=== PATIENT | female | born 1985 | race Caucasian/White ===

== ENCOUNTER 2021-11-01 16:10 | Emergency (ER) | payer OTHER, SELFPAY ==
--- NOTE | 2021-11-01 | ECG_ITS ---
Test Reason : chest pressure Blood Pressure : / mmHG Vent. Rate : 072 BPM Atrial Rate : 072 BPM P-R Int : 122 ms QRS Dur : 090 ms QT Int : 386 ms P-R-T Axes : 031 024 031 degrees QTc Int : 422 ms Normal sinus rhythm with sinus arrhythmia Normal ECG No previous ECGs available Referred By: Generic ED Physician Electronically Signed By:HEATHER NGUYEN MD
--- NOTE | ~2021-11-01 | XR_ITS ---
EXAMINATION: XR CHEST CLINICAL INFORMATION: Shortness of breath COMPARISON: None TECHNIQUE: Frontal view of the chest was obtained. FINDINGS: No significant abnormality is noted involving the heart, lungs, mediastinum, bony thorax or soft tissues. XR/XR chest 1V IMPRESSION: No acute pulmonary disease.
[2021-11-01 17:09] VITALS: BP 157/102; PULSE 89; RESP 18; TEMP 36.8; O2SAT 98; BMI 34.0
[2021-11-01 19:16] LABS: COVID-19 Test Positive (Negative)
--- NOTE | 2021-11-01 20:12 | ED.URI ---
HPI - URI/Sore Throat General Chief Complaint: Upper Respiratory Symptoms Stated Complaint: cough chest tightness sob had covid 10/07/21 Time Seen by Provider: 11/01/21 19:35 Source: patient Mode of arrival: ambulatory Limitations: no limitations History of Present Illness HPI Narrative: 36-year-old female with a history of autoimmune disorder, asthma here with chest tightness, shortness of breath, cough for the last 3 days at home. No fevers, chills, leg swelling or pain. Patient tells me she was diagnosed with COVID on October 07 and seemed to recover from this until several days ago when she started to feel symptoms again. Patient had some leftover prednisone which she took which seemed to help her shortness of breath and chest tightness. She ran out of her albuterol inhaler at home. Related Data Previous Rx's Medication Instructions Recorded albuterol sulfate 90 mcg/actuation 2 puff INHALATION QID PRN #8.5 g 11/01/21 aerosol inhaler prednisone 20 mg tablet 40 mg PO DAILY #10 tab 11/01/21 Allergies Allergy/AdvReac Type Severity Reaction Status Date / Time Penicillins Allergy Anaphylaxis Verified 11/01/21 17:08 Review of Systems Review of Systems: Yes all other systems are reviewed and are negative Constitutional: Constitutional: Reports no additional constitutional complaints, Denies body ache(s), Denies chills, Denies fever(s), Denies headache(s) and Denies weakness Eyes: Eyes: Reports no additional eye complaints and Denies change in vision ENT: Reports system reviewed and no additional complaints, except as documented, Denies dizziness, Denies headache(s), Denies nasal congestion, Denies nasal discharge and Denies neck pain Cardiovascular: Cardiovascular: Reports no additional cardiovascular complaints, Reports chest pain, Denies leg edema and Reports dyspnea Respiratory: Respiratory: Reports no additional respiratory complaints, Reports cough and Reports dyspnea Gastrointestinal: Gastrointestinal: Reports no additional gastrointestinal complaints, Denies abdominal pain, Denies diarrhea, Denies nausea and Denies vomiting Genitourinary: Genitourinary: Reports no additional female genitourinary complaints and Denies urinary incontinence Musculoskeletal: Musculoskeletal: Reports no additional musculoskeletal complaints, Denies back pain, Denies arthralgias, Denies joint swelling, Denies neck pain, Denies numbness and Denies tingling Integumentary/Breasts: Skin/Breast: Reports system reviewed and no additional complaints, except as docu and Denies rash Neurologic: Denies Abnormal speech present, Denies dizziness, Denies headache(s), Denies numbness, Denies tingling and Denies weakness PMFSH Past Medical History Attestation statement: The following information was validated with the patient. Source: old records reviewed and nursing notes reviewed Medical History Asthma CHF (congestive heart failure) Maurisio's disease HTN (hypertension) Social History Social History Advance Directives: No Advance Directives Information Provided: Yes Patient : No Physical Exam Vital Signs: Vital Signs: Last Vital Signs Temp 98.2 F 11/01/21 17:09 Pulse 89 11/01/21 17:09 Resp 18 11/01/21 17:09 BP 157/102 H 11/01/21 17:09 Pulse Ox 98 11/01/21 17:09 BMI result Body Mass Index 34.0 Const: General: cooperative, healthy appearing, comfortable and no acute distress Orientation/consciousness: patient oriented x3 Limitations: no limitations HENMT: Head: Yes normal to inspection Ears: hearing grossly normal bilaterally and TM's normal bilaterally General nose exam: Normal external nose present Face and sinus: Yes normal facial exam Mouth: Normal oral and palatal mucosa present Throat: Yes posterior oropharynx normal, Yes tonsils normal and Yes uvula midline Eyes: General: appearance normal, both eyes and all related structures Pupils: Equal, round and reactive pupils present Neck: Neck: Yes normal visual inspection Chest: Other: Chest discomfort with deep breathing and movement Chest palpation & inspection: normal inspection of the chest Resp: Effort & Inspection: normal respiratory effort Auscultation: clear to auscultation bilaterally Cardio: Rate: regular rate Rhythm: regular rhythm Peripheral pulses: Peripheral pulses 2+ throughout GI: Inspection: Yes normal to inspection Palpation (GI): Soft to palpation and nontender Auscultation: normal bowel sounds Back/Spine/Pelvis: Thoracic/Lumbar Spine: thoracic and lumbar spine normal to inspection Skin: General skin exam: no rashes or lesions noted Neuro: General: patient oriented x3, no focal motor deficits and normal sensation to monofilament Cranial nerves: Yes Equal, round and reactive pupils present Cognition (Neuro): normal cognition Speech: No Abnormal speech present Gait exam (Neuro): Normal gait present Motor exam (neuro): 5/5 motor strength present throughout Extrem: General: Yes normal to inspection, Yes no pedal edema and Yes no calf tenderness Course Course Course Narrative: 36-year-old female here with reports of chest tightness, shortness of breath and cough for several days. On exam the patient has pleuritic chest pain. No calf swelling or pain. Lungs are clear. Vitals are stable. Patient tested positive on 10/07 for COVID and tells me she had several weeks of feeling better until couple of days ago. Will check chest x-ray, EKG, labs. 2144-chest x-ray, EKG and labs are all unremarkable. COVID screen is positive however I did explain to the patient she will likely test positive for several weeks after she recovered from that illness. Likely chest wall strain secondary to coughing. Patient also has underlying asthma and feels like she has been using her inhaler more but ran out of this at home. Will treat with course of prednisone and albuterol MDI. Reviewed worrisome signs and symptoms of when to return to the emergency department. Comfortable discharge home. MDM - URI/Sore Throat MDM Narrative Medical decision making narrative: Myocarditis, ACS, PE -less likely with normal EKG, normal troponin, negative D-dimer. No hypoxia, tachypnea, tachycardia clinical findings concerning for DVT Medical Records Attestation: I reviewed the patient's medical records. Lab Data Attestation: I reviewed the patient's lab results. Result diagrams: 11/01/21 20:19 11/01/21 20:19 Labs: Lab Results 11/01/21 11/01/21 11/01/21 Range/Units 18:16 20:19 20:19 WBC 7.4 (4.8-10.8) X10*3/uL RBC 4.46 (4.20-5.50) X10*6/uL Hgb 12.9 (12.0-16.0) g/dl Hct 38.1 (37.0-47.0) % MCV 85.4 (80.0-98.0) fL MCH 28.9 (27.0-33.0) pg MCHC 33.9 (31.0-35.0) g/dl RDW 13.0 (11.0-16.0) % Plt Count 225 (160-400) X10*3/uL MPV 11.8 (9.4-12.3) fL Immature Gran % (Auto) 0.3 (0.0-0.4) % Neut % (Auto) 67.9 (45-73) % Lymph % (Auto) 18.5 L (20-40) % [place] % (Auto) 9.3 (2-11) % Eos % (Auto) 3.6 (0-4) % Baso % (Auto) 0.4 (0-2) % Lymph # (Auto) 1.4 (1.2-4.9) X10*3/uL [place] # (Auto) 0.7 (0.1-1.2) X10*3/uL Eos # (Auto) 0.3 (0.0-0.4) X10*3/uL Baso # (Auto) 0.0 (0.0-0.2) X10*3/uL Abs Immat Gran (auto) 0.02 (0.00-0.03) X10*3/uL Absolute Neuts (auto) 5.0 (2.0-8.3) x10*3/uL Absolute Nucleated RBC 0.000 (0.0-0.012) X10*3/uL Nucleated RBC % (auto) 0.0 (0.0-0.2) /100WBC D-Dimer High Sensitivty < 150 NG/ML Sodium (135-145) mmol/L Potassium (3.3-5.1) mmol/L Chloride (96-108) mmol/L Carbon Dioxide (22-29) mmol/L Anion Gap (12-20) BUN (9-16) mg/dL Creatinine (0.5-1.4) mg/dL Estim Creat Clear Calc Estimated GFR Random Glucose (60-115) mg/dL Calcium (8.4-10.2) mg/dL Total Bilirubin (0.0-1.0) mg/dL Direct Bilirubin (0.0-0.5) mg/dL AST (5-31) U/L ALT (0-31) U/L Alkaline Phosphatase (39-117) U/L Troponin I High Sens (<3.5-17.0) ng/L Total Protein (6.5-8.0) g/dL Albumin (3.5-5.0) g/dL Urine Color Urine Appearance Urine pH (5.0-8.0) Ur Specific [place] (1.005-1.025) Urine Protein (NEG-TRACE) MG/DL Urine Glucose (UA) (NEG) MG/DL Urine Ketones (NEG) MG/DL Urine Blood (NEG) Urine Nitrite (NEG) Ur Leukocyte Esterase (NEG) Urine Test (NEGATIVE) COVID-19 (NICOLE) Positive A (Negative) COVID-19 Clin Com See Note 11/01/21 11/01/21 11/01/21 Range/Units 20:19 20:19 20:19 WBC (4.8-10.8) X10*3/uL RBC (4.20-5.50) X10*6/uL Hgb (12.0-16.0) g/dl Hct (37.0-47.0) % MCV (80.0-98.0) fL MCH (27.0-33.0) pg MCHC (31.0-35.0) g/dl RDW (11.0-16.0) % Plt Count (160-400) X10*3/uL MPV (9.4-12.3) fL Immature Gran % (Auto) (0.0-0.4) % Neut % (Auto) (45-73) % Lymph % (Auto) (20-40) % [place] % (Auto) (2-11) % Eos % (Auto) (0-4) % Baso % (Auto) (0-2) % Lymph # (Auto) (1.2-4.9) X10*3/uL [place] # (Auto) (0.1-1.2) X10*3/uL Eos # (Auto) (0.0-0.4) X10*3/uL Baso # (Auto) (0.0-0.2) X10*3/uL Abs Immat Gran (auto) (0.00-0.03) X10*3/uL Absolute Neuts (auto) (2.0-8.3) x10*3/uL Absolute Nucleated RBC (0.0-0.012) X10*3/uL Nucleated RBC % (auto) (0.0-0.2) /100WBC D-Dimer High Sensitivty NG/ML Sodium 139 (135-145) mmol/L Potassium 3.8 (3.3-5.1) mmol/L Chloride 106 (96-108) mmol/L Carbon Dioxide 28 (22-29) mmol/L Anion Gap 9 L (12-20) BUN 16 (9-16) mg/dL Creatinine 0.77 (0.5-1.4) mg/dL Estim Creat Clear Calc 107.4 Estimated GFR > 60 Random Glucose 90 (60-115) mg/dL Calcium 9.4 (8.4-10.2) mg/dL Total Bilirubin 0.3 (0.0-1.0) mg/dL Direct Bilirubin < 0.2 (0.0-0.5) mg/dL AST 17 (5-31) U/L ALT 27 (0-31) U/L Alkaline Phosphatase 72 (39-117) U/L Troponin I High Sens < 3.5 (<3.5-17.0) ng/L Total Protein 7.0 (6.5-8.0) g/dL Albumin 4.1 (3.5-5.0) g/dL Urine Color YELLOW Urine Appearance CLEAR Urine pH 6.0 (5.0-8.0) Ur Specific [place] 1.025 (1.005-1.025) Urine Protein NEG (NEG-TRACE) MG/DL Urine Glucose (UA) NEG (NEG) MG/DL Urine Ketones NEG (NEG) MG/DL Urine Blood NEG (NEG) Urine Nitrite NEG (NEG) Ur Leukocyte Esterase NEG (NEG) Urine Test (NEGATIVE) COVID-19 (NICOLE) (Negative) COVID-19 Clin Com 11/01/21 Range/Units 20:19 WBC (4.8-10.8) X10*3/uL RBC (4.20-5.50) X10*6/uL Hgb (12.0-16.0) g/dl Hct (37.0-47.0) % MCV (80.0-98.0) fL MCH (27.0-33.0) pg MCHC (31.0-35.0) g/dl RDW (11.0-16.0) % Plt Count (160-400) X10*3/uL MPV (9.4-12.3) fL Immature Gran % (Auto) (0.0-0.4) % Neut % (Auto) (45-73) % Lymph % (Auto) (20-40) % [place] % (Auto) (2-11) % Eos % (Auto) (0-4) % Baso % (Auto) (0-2) % Lymph # (Auto) (1.2-4.9) X10*3/uL [place] # (Auto) (0.1-1.2) X10*3/uL Eos # (Auto) (0.0-0.4) X10*3/uL Baso # (Auto) (0.0-0.2) X10*3/uL Abs Immat Gran (auto) (0.00-0.03) X10*3/uL Absolute Neuts (auto) (2.0-8.3) x10*3/uL Absolute Nucleated RBC (0.0-0.012) X10*3/uL Nucleated RBC % (auto) (0.0-0.2) /100WBC D-Dimer High Sensitivty NG/ML Sodium (135-145) mmol/L Potassium (3.3-5.1) mmol/L Chloride (96-108) mmol/L Carbon Dioxide (22-29) mmol/L Anion Gap (12-20) BUN (9-16) mg/dL Creatinine (0.5-1.4) mg/dL Estim Creat Clear Calc Estimated GFR Random Glucose (60-115) mg/dL Calcium (8.4-10.2) mg/dL Total Bilirubin (0.0-1.0) mg/dL Direct Bilirubin (0.0-0.5) mg/dL AST (5-31) U/L ALT (0-31) U/L Alkaline Phosphatase (39-117) U/L Troponin I High Sens (<3.5-17.0) ng/L Total Protein (6.5-8.0) g/dL Albumin (3.5-5.0) g/dL Urine Color Urine Appearance Urine pH (5.0-8.0) Ur Specific [place] (1.005-1.025) Urine Protein (NEG-TRACE) MG/DL Urine Glucose (UA) (NEG) MG/DL Urine Ketones (NEG) MG/DL Urine Blood (NEG) Urine Nitrite (NEG) Ur Leukocyte Esterase (NEG) Urine Test NEGATIVE (NEGATIVE) COVID-19 (NICOLE) (Negative) COVID-19 Clin Com Imaging Data Chest x-ray: Attestation: I personally reviewed and interpreted this imaging study as follows: Radiologist's impression: [address] [address] XRay Report Signed Patient: Sheela Max MR#: [id number] : 1985 Acct:[id number] Age/Sex: 36 / F ADM Date: 11/01/21 Loc: .ED Attending Dr: Ordering Physician: [place] ED Physician Date of Service: 11/01/21 Procedure(s): XR chest 1V Accession Number(s): [id number] cc: Generic ED Physician~ EXAMINATION: XR CHEST CLINICAL INFORMATION: Shortness of breath COMPARISON: None TECHNIQUE: Frontal view of the chest was obtained. FINDINGS: No significant abnormality is noted involving the heart, lungs, mediastinum, bony thorax or soft tissues. XR/XR chest 1V IMPRESSION: No acute pulmonary disease. ? ECG Data Attestation: I personally reviewed and interpreted this ECG as follows: ECG interpretation date: 11/01/21 ECG interpretation time: 18:21 Interpretation: Normal sinus rhythm with a rate of 72, normal MO, QRS normal QT Discharge Plan Discharge Clinical Impression: Atypical chest pain, Asthma Patient Disposition: Home, Self-Care Instructions: Asthma (ED), Chest Wall Pain (ED) Additional Instructions: X-ray, EKG and labs all look normal You are testing positive for COVID still but you may test positive for several more weeks. You do not need to quarantine Prescriptions: New prednisone 20 mg tablet 40 mg PO DAILY Qty: 10 RF: 0 albuterol sulfate 90 mcg/actuation HFA aerosol inhaler 2 puff inhalation QID PRN (Reason: shortness of breath or wheezing) Qty: 8.5 RF: 0 Referrals: Physician,None [Primary Care Provider] - 2 days Interventions: ED Discharge Assessment Last Done: 11/01/21 21:17 Discharge Date/Time: 11/01/21 21:17
[2021-11-01 20:24] LABS: MANUAL DIFF FLAG NO
[2021-11-01 20:28] LABS: Basophils Percent Auto 0.4 % (0-2); Eosinophils Absolute Auto 0.3 X10*3/uL (0.0-0.4); Eosinophils Percent Auto 3.6 % (0-4); Hematocrit 38.1 % (37.0-47.0); Hemoglobin 12.9 g/dl (12.0-16.0); Imm Gran Abs Auto 0.02 X10*3/uL (0.00-0.03); Imm Gran Pct Auto 0.3 % (0.0-0.4); Lymphocytes Absolute Auto 1.4 X10*3/uL (1.2-4.9); Lymphocytes Percent Auto 18.5 % (20-40); Mean Corpuscular HGB Conc 33.9 g/dl (31.0-35.0); Mean Corpuscular Hemoglobin 28.9 pg (27.0-33.0); Mean Corpuscular Volume 85.4 fL (80.0-98.0); Mean Platelet Volume 11.8 fL (9.4-12.3); Monocytes Absolute Auto 0.7 X10*3/uL (0.1-1.2); Monocytes Percent Auto 9.3 % (2-11); Neutrophils Percent Auto 67.9 % (45-73); Platelet Count 225 X10*3/uL (160-400); Red Blood Count 4.46 X10*6/uL (4.20-5.50); White Blood Count 7.4 X10*3/uL (4.8-10.8)
[2021-11-01 20:29] LABS: Appearance Urine CLEAR; Color Urine YELLOW; Glucose Urine UA NEG (NEG); Leukocyte Esterase Urine NEG (NEG); Nitrite Urine NEG (NEG); Specific Gravity - Urine 1.025 (1.005-1.025); Urine Blood NEG (NEG); Urine Ketones NEG (NEG); Urine Protein NEG (NEG-TRACE)
[2021-11-01 20:31] LABS: UPreg QC Valid YES; Urine Pregnancy NEGATIVE (NEGATIVE)
[2021-11-01 20:48] LABS: Troponin-I High Sensitivity < 3.5 ng/L (<3.5-17.0)
[2021-11-01 20:58] LABS: D Dimer High Sensitivity < 150 NG/ML
[2021-11-01 21:11] LABS: Alanine Aminotransferase 27 U/L (0-31); Albumin Level 4.1 g/dL (3.5-5.0); Alkaline Phosphatase 72 U/L (39-117); Anion Gap 9 (12-20); Aspartate Amino Transferase 17 U/L (5-31); Bilirubin Direct < 0.2 mg/dL (0.0-0.5); Bilirubin Total 0.3 mg/dL (0.0-1.0); Blood Urea Nitrogen 16 mg/dL (9-16); Calcium 9.4 mg/dL (8.4-10.2); Carbon Dioxide 28 mmol/L (22-29); Chloride 106 mmol/L (96-108); Creatinine Clr Calc Pharmacy 107.4; Estimated Glomerular Filt Rate > 60; Glucose Random 90 mg/dL (60-115); Potassium 3.8 mmol/L (3.3-5.1); Sodium 139 mmol/L (135-145)
== END 2021-11-01 21:17 | disposition home or self-care (01) ==
PROVIDERS: Nurse Practitioner Family; Emergency Provider Internal Medicine
DX: R07.89 Other chest pain (principal); J45.909 Unspecified asthma, uncomplicated; I11.0 Hypertensive heart disease with heart failure; I50.9 Heart failure, unspecified; Z20.822 Contact with and (suspected) exposure to COVID-19
CPT/HCPCS: 36415; 71045; 80048; 80076; 81003; 81025; 84484; 85025; 85379; 87635; 93005; 99283

== ENCOUNTER 2023-04-08 13:07 | Emergency (ER) | payer OTHER, SELFPAY ==
[2023-04-08 13:46] VITALS: BP 154/88; PULSE 67; RESP 16; TEMP 36.4; O2SAT 100; BMI 35.1
--- NOTE | 2023-04-08 13:47 | ED.GENADULT ---
HPI - General Adult General Chief complaint: Abdominal Pain Stated complaint: abd pain, back pain Time Seen by Provider: 04/08/23 16:11 Source: patient Mode of arrival: ambulatory History of Present Illness HPI narrative: 37-year-old female with history of gastric sleeve in December, states that she had this done at [facility], no complications, everything has been going along fine but states that she has had increasing acid reflux with mid back pain/diarrhea/heartburn for 2 weeks. She has increased her Pepcid, Pepto-Bismol as well as Gaviscon. Patient reports that she has been getting some improvement with the Gaviscon. Otherwise, denies any fever, chills, nausea, vomiting. She has been using NSAIDs for the past couple of days as well as drinking coffee. Related Data Previous Rx's Medication Instructions Recorded albuterol sulfate 90 mcg/actuation 2 puff inhalation QID PRN 11/01/21 aerosol inhaler shortness of breath or wheezing #8.5 grams prednisone 20 mg tablet 40 mg PO DAILY #10 tabs 11/01/21 sucralfate 100 mg/mL oral 10 ml PO TID #420 mL 04/08/23 suspension (Carafate) Allergies Allergy/AdvReac Type Severity Reaction Status Date / Time Penicillins Allergy Anaphylaxis Verified 04/08/23 13:46 Review of Systems Review of Systems: Pertinent positives and negatives as stated in [facility] Past Medical History Source: nursing notes reviewed Medical History Asthma CHF (congestive heart failure) Maurisio's disease HTN (hypertension) Social History Social History Alcohol intake: current Alcohol intake frequency: holidays/special occasions only Smoked in Last 30 Days: No Substance Use Type: Marijuana Substance Use Type Other:: only an occasional edible for sleep Substance Use Frequency: Occasionally Last Used Substance: Days (ago) Advance Directives: No Advance Directives Information Provided: No Physical Exam ED Vital Signs: Vital Signs - 24 hr 04/08/23 13:46 04/08/23 15:59 04/08/23 17:56 Temperature 97.6 F 98.1 F Pulse Rate 67 103 H 50 Respiratory Rate 16 18 16 Blood Pressure 154/88 H 125/85 122/80 Pulse Oximetry 100 99 98 Oxygen Delivery Method Room Air Room Air Room Air BMI result Body Mass Index 35.1 VITAL SIGNS: Reviewed. GENERAL: Well developed, well nourished, in no acute distress. HEAD: Normocephalic/atraumatic EYES: PERRLA, EOMI EARS: Ext canals without abnormality NOSE: Nares patent bilateral OROPHARYNX: no oral lesions noted, posterior pharynx clear NECK: Supple, no adenopathy LUNGS: Normal breath sounds. No adventitious sounds or accessory muscle use. SpO2<98> CARDIOVASCULAR: Regular rate and rhythm without noted murmurs ABDOMEN: Soft, mild tenderness on palpation, non-distended with bowel sounds. MUSCULOSKELETAL: No tenderness, deformities, or effusions noted on gross inspection. EXTREMITIES: No cyanosis, clubbing or edema. SKIN: Inspection of the skin reveals no rashes NEUROLOGIC: Alert and oriented x 4. Strength and sensation to light touch were grossly intact x 4. Course Course Course Narrative: This is an RME: Additional HPI, ROS, PE not included below will be deferred to primary provider. This is a [id number]-female, with a history of gastric sleeve in December 2022, hashimotos and hyperparathyroidism, presenting to the emergency department with complaints of heartburn, diarrhea, flatulance and fatigue x 3 months. She states that since her surgery, she has had persistent heartburn, diarrhea, gas and fatigue despite taking [place] and omeprazole. She called her bariatric surgeon who will not see her until the end of the March. No fevers or chills. Will defer further exam until seen in the main ER. Plan: Labs ordered. Medications Administered Discontinued Medications Generic Name Dose Route Start Last Admin Trade Name Gerardq PRN Reason Stop Dose Admin Al Hydroxide/Mg Hydroxide 30 ml 04/08/23 17:38 04/08/23 18:06 Magnesium Hydrox/Alum Hydrox 30 Ml Oral.Susp PO 04/08/23 17:39 30 ml ONCE ONE Administration Lidocaine HCl 10 ml 04/08/23 17:38 04/08/23 18:06 Lidocaine Hcl Viscous 2 % 15 Ml Solution MUCOUS MEM 04/08/23 17:39 10 ml ONCE ONE Administration Sucralfate 1 gm 04/08/23 17:38 04/08/23 18:06 Sucralfate Oral Suspension 1 Gm/10 Ml Oral.Susp PO 04/08/23 17:39 1 gm ONCE ONE Administration Medical Decision Making Medical Decision Making MDM Narrative: 37-year-old female with history and clinical presentation most consistent with acid reflux likely associated by dietary choices, [id number] medication and recent type surgery. I have no clinical suspicion for acute perforation or life-threatening abnormality at this time after review of all investigations. She is otherwise hemodynamically stable and was given GI cocktail and Carafate and will re-evaluate. Of note, hCG-12, urine is negative and will discuss this with the patient and strongly encourage follow-up for repeat labs. Review of all investigations my interpretation is acid reflux with acute gastritis and possibility of developing ulcer. On re-evaluation patient is feeling much improved after the medication. Differential Diagnosis Please see the discussion above Lab Data Please see the discussion above 04/08/23 14:11 04/08/23 14:11 Labs: Lab Results 04/08/23 04/08/23 04/08/23 Range/Units 14:11 14:11 14:11 WBC 6.1 (4.8-10.8) X10*3/uL RBC 4.71 (4.20-5.50) X10*6/uL Hgb 13.2 (12.0-16.0) g/dl Hct 40.9 (37.0-47.0) % MCV 86.8 (80.0-98.0) fL MCH 28.0 (27.0-33.0) pg MCHC 32.3 (31.0-35.0) g/dl RDW 12.7 (11.0-16.0) % Plt Count 211 (160-400) X10*3/uL MPV 11.7 (9.4-12.3) fL Immature Gran % (Auto) 0.3 (0.0-0.4) % Neut % (Auto) 67.0 (45-73) % Lymph % (Auto) 23.4 (20-40) % [place] % (Auto) 6.3 (2-11) % Eos % (Auto) 2.5 (0-4) % Baso % (Auto) 0.5 (0-2) % Lymph # (Auto) 1.4 (1.2-4.9) X10*3/uL [place] # (Auto) 0.4 (0.1-1.2) X10*3/uL Eos # (Auto) 0.2 (0.0-0.4) X10*3/uL Baso # (Auto) 0.0 (0.0-0.2) X10*3/uL Abs Immat Gran (auto) 0.02 (0.00-0.03) X10*3/uL Absolute Neuts (auto) 4.1 (2.0-8.3) x10*3/uL Absolute Nucleated RBC 0.000 (0.0-0.012) X10*3/uL Nucleated RBC % (auto) 0.0 (0.0-0.2) /100WBC Sodium 139 (135-145) mmol/L Potassium 4.1 (3.3-5.1) mmol/L Chloride 106 (96-108) mmol/L Carbon Dioxide 27 (22-29) mmol/L Anion Gap 10 L (12-20) BUN 11 (9-16) mg/dL Creatinine 0.76 (0.5-1.4) mg/dL Estim Creat Clear Calc 101.7 Estimated GFR > 60 Random Glucose 100 (60-115) mg/dL Calcium 9.4 (8.4-10.2) mg/dL Total Bilirubin 0.5 (0.0-1.0) mg/dL Direct Bilirubin 0.1 (0.0-0.5) mg/dL AST 15 (5-31) U/L ALT 14 (0-31) U/L Alkaline Phosphatase 56 (39-117) U/L Total Protein 6.3 L (6.5-8.0) g/dL Albumin 3.9 (3.5-5.0) g/dL Lipase 21 (8-78) U/L TSH 1.94 (0.32-4.0) uIU/mL Beta HCG, Quant 12 mIU/mL Urine Color Urine Appearance Urine pH (5.0-9.0) Ur Specific [place] (1.005-1.025) Urine Protein (Neg-Trace) mg/dL Urine Glucose (UA) (Negative) mg/dL Urine Ketones (Negative) mg/dL Urine Blood (Negative) Urine Nitrite (Negative) Ur Leukocyte Esterase (Negative) Urine Test (NEGATIVE) 04/08/23 04/08/23 Range/Units 17:05 17:05 WBC (4.8-10.8) X10*3/uL RBC (4.20-5.50) X10*6/uL Hgb (12.0-16.0) g/dl Hct (37.0-47.0) % MCV (80.0-98.0) fL MCH (27.0-33.0) pg MCHC (31.0-35.0) g/dl RDW (11.0-16.0) % Plt Count (160-400) X10*3/uL MPV (9.4-12.3) fL Immature Gran % (Auto) (0.0-0.4) % Neut % (Auto) (45-73) % Lymph % (Auto) (20-40) % [place] % (Auto) (2-11) % Eos % (Auto) (0-4) % Baso % (Auto) (0-2) % Lymph # (Auto) (1.2-4.9) X10*3/uL [place] # (Auto) (0.1-1.2) X10*3/uL Eos # (Auto) (0.0-0.4) X10*3/uL Baso # (Auto) (0.0-0.2) X10*3/uL Abs Immat Gran (auto) (0.00-0.03) X10*3/uL Absolute Neuts (auto) (2.0-8.3) x10*3/uL Absolute Nucleated RBC (0.0-0.012) X10*3/uL Nucleated RBC % (auto) (0.0-0.2) /100WBC Sodium (135-145) mmol/L Potassium (3.3-5.1) mmol/L Chloride (96-108) mmol/L Carbon Dioxide (22-29) mmol/L Anion Gap (12-20) BUN (9-16) mg/dL Creatinine (0.5-1.4) mg/dL Estim Creat Clear Calc Estimated GFR Random Glucose (60-115) mg/dL Calcium (8.4-10.2) mg/dL Total Bilirubin (0.0-1.0) mg/dL Direct Bilirubin (0.0-0.5) mg/dL AST (5-31) U/L ALT (0-31) U/L Alkaline Phosphatase (39-117) U/L Total Protein (6.5-8.0) g/dL Albumin (3.5-5.0) g/dL Lipase (8-78) U/L TSH (0.32-4.0) uIU/mL Beta HCG, Quant mIU/mL Urine Color Yellow Urine Appearance Clear Urine pH 6.5 (5.0-9.0) Ur Specific [place] 1.015 (1.005-1.025) Urine Protein Negative (Neg-Trace) mg/dL Urine Glucose (UA) Negative (Negative) mg/dL Urine Ketones Negative (Negative) mg/dL Urine Blood Negative (Negative) Urine Nitrite Negative (Negative) Ur Leukocyte Esterase Negative (Negative) Urine Test NEGATIVE (NEGATIVE) External Record Review External record reviewed: Outpatient record and Prior outpatient labs Discharge Plan Discharge Clinical Impression: Acid reflux, Gastritis Patient Disposition: Home, Self-Care Instructions: Gastritis (ED), Diet for Stomach Ulcers and Gastritis (ED), Indigestion (ED) Additional Instructions: 1. Please review the dietary changes recommended at this time. Increase the amount of water intake over the next 2-3 days. 2. You have been given a prescription for Carafate and should use that 3 times a day as prescribed 3. Please follow-up with your primary care provider and your bariatric surgeon at your earliest convenience. you had an elevated beta-hCG,this is a test in your blood for , although it was very low you will need to get this rechecked Return to the ER for any worsening symptoms. Prescriptions: New sucralfate [Carafate] 100 mg/mL suspension 10 ml PO TID Qty: 420 0RF Rx Instructions: swish in mouth and swallow; use after food/drink No Action prednisone 20 mg tablet 40 mg PO DAILY Qty: 10 0RF albuterol sulfate 90 mcg/actuation HFA aerosol inhaler 2 puff inhalation QID PRN (Reason: shortness of breath or wheezing) Qty: 8.5 0RF
[2023-04-08 14:15] LABS: MANUAL DIFF FLAG NO
[2023-04-08 14:27] LABS: Basophils Percent Auto 0.5 % (0-2); Eosinophils Absolute Auto 0.2 X10*3/uL (0.0-0.4); Eosinophils Percent Auto 2.5 % (0-4); Hematocrit 40.9 % (37.0-47.0); Hemoglobin 13.2 g/dl (12.0-16.0); Imm Gran Abs Auto 0.02 X10*3/uL (0.00-0.03); Imm Gran Pct Auto 0.3 % (0.0-0.4); Lymphocytes Absolute Auto 1.4 X10*3/uL (1.2-4.9); Lymphocytes Percent Auto 23.4 % (20-40); Mean Corpuscular HGB Conc 32.3 g/dl (31.0-35.0); Mean Corpuscular Volume 86.8 fL (80.0-98.0); Mean Platelet Volume 11.7 fL (9.4-12.3); Monocytes Absolute Auto 0.4 X10*3/uL (0.1-1.2); Monocytes Percent Auto 6.3 % (2-11); Neutrophils Absolute Auto 4.1 x10*3/uL (2.0-8.3); Platelet Count 211 X10*3/uL (160-400); Red Blood Count 4.71 X10*6/uL (4.20-5.50); Red Cell Distribution Width 12.7 % (11.0-16.0); White Blood Count 6.1 X10*3/uL (4.8-10.8)
[2023-04-08 14:38] LABS: Alanine Aminotransferase 14 U/L (0-31); Albumin Level 3.9 g/dL (3.5-5.0); Alkaline Phosphatase 56 U/L (39-117); Anion Gap 10 (12-20); Aspartate Amino Transferase 15 U/L (5-31); Bilirubin Direct 0.1 mg/dL (0.0-0.5); Bilirubin Total 0.5 mg/dL (0.0-1.0); Blood Urea Nitrogen 11 mg/dL (9-16); Calcium 9.4 mg/dL (8.4-10.2); Carbon Dioxide 27 mmol/L (22-29); Chloride 106 mmol/L (96-108); Creatinine Clr Calc Pharmacy 101.7; Estimated Glomerular Filt Rate > 60; Glucose Random 100 mg/dL (60-115); Lipase 21 U/L (8-78); Potassium 4.1 mmol/L (3.3-5.1); Sodium 139 mmol/L (135-145); Total Protein 6.3 g/dL (6.5-8.0)
[2023-04-08 15:02] LABS: TSH reflex Free T4 1.94 uIU/mL (0.32-4.0)
[2023-04-08 15:59] VITALS: BP 125/85; PULSE 103; RESP 18; TEMP 36.7; O2SAT 99
--- NOTE | 2023-04-08 16:14 | PC.NURSE ---
Alert and oriented. Arrived from home reporting that she had upper abdominal pain for two weeks that now has moved to her back. States had a gastric sleeve in december and since then has had problems with gastric reflux. Denies pain with urination. states that she has had difficulty sleeping and has a hard time lying down because of the pain. Took motirin prior to arrival and states she doesn't currently have any pain. Denies chest pain and sob. No vomiting but does have some nausea at times.
[2023-04-08 17:11] LABS: Appearance Urine Clear; Color Urine Yellow; Glucose Urine UA Negative (Negative); Leukocyte Esterase Urine Negative (Negative); Nitrite Urine Negative (Negative); PH 6.5 (5.0-9.0); Specific Gravity - Urine 1.015 (1.005-1.025); Urine Blood Negative (Negative); Urine Ketones Negative (Negative); Urine Protein Negative (Neg-Trace)
[2023-04-08 17:17] LABS: HCG Quantitative 12 mIU/mL
[2023-04-08 17:56] VITALS: BP 122/80; PULSE 50; RESP 16; O2SAT 98
[2023-04-08 18:00] LABS: UPreg QC Valid YES; Urine Pregnancy NEGATIVE (NEGATIVE)
[2023-04-08] MEDS: Lidocaine HCl Viscous 2 % 15 ML SOLUTION 10 ML MUCOUS MEM (18:06)
[2023-04-08] MEDS: Magnesium Hydrox/Alum Hydrox 30 ML ORAL.SUSP PO (18:06)
[2023-04-08] MEDS: Sucralfate Oral Suspension 1 GM/10 ML ORAL.SUSP PO (18:06)
--- NOTE | 2023-04-08 18:08 | PC.NURSE ---
Medicated with GI cocktail per order.
== END 2023-04-08 18:54 | disposition home or self-care (01) ==
PROVIDERS: Physician Assistant Medical; Emergency Provider Student in an Organized Health Care Education/Training Program
DX: K21.9 Gastro-esophageal reflux disease without esophagitis (principal); K29.70 Gastritis, unspecified, without bleeding; Z79.899 Other long term (current) drug therapy
CPT/HCPCS: 36415; 80048; 80076; 81003; 81025; 83690; 84443; 84702; 85025; 99283; 99284

== ENCOUNTER 2023-11-26 10:36 | Emergency (ER) | payer OTHER, SELFPAY ==
[2023-11-26 10:39] VITALS: BP 194/99; PULSE 68; RESP 20; TEMP 37.2; O2SAT 99; BMI 34.0
[2023-11-26 11:30] VITALS: BP 154/95; PULSE 57; RESP 18; TEMP 36.8; O2SAT 98
[2023-11-26 12:16] LABS: Appearance Urine Clear; Color Urine Yellow; Glucose Urine UA Negative (Negative); Leukocyte Esterase Urine Trace (Negative); Nitrite Urine Negative (Negative); PH 6.5 (5.0-9.0); Specific Gravity - Urine 1.015 (1.005-1.025); UMIC TRIGGER UACC YES; Urine Blood Negative (Negative); Urine Ketones Trace mg/dL (Negative); Urine Protein Negative (Neg-Trace)
[2023-11-26 12:20] LABS: Bacteria Urine None Seen (None Seen); Hyaline Casts Urine 0-2 /LPF (0-2); RBC Urine 0-2 /HPF (0-2); Squamous Epithelial Cell Urine 0-2 /HPF (0-2); WBC Urine 0-5 /HPF (0-5)
--- NOTE | 2023-11-26 13:10 | ED_ITS ---
HPI - General Adult General Chief complaint: General Medical Stated complaint: HPB/ palpations sent by urgent care Time Seen by Provider: 11/26/23 13:10 History of Present Illness HPI narrative: The patient is a 38-year-old female who has a history of having had hypertension and congestive heart failure 11 years ago. She was on medications for a long time but has been doing much better since bariatric surgery 2 years ago. She is ultimately gotten off all of her antihypertensive and other medications except for her asthma medications. For the last 2 days she has had palpitations, a sense of chest tightness, cough and some shortness of breath. Related Data Previous Rx's Medication Instructions Recorded albuterol sulfate 90 mcg/actuation 2 puff inhalation QID PRN 11/01/21 aerosol inhaler shortness of breath or wheezing #8.5 grams prednisone 20 mg tablet 40 mg (2 x 20 mg) PO DAILY #10 tabs 11/01/21 sucralfate 100 mg/mL oral 10 ml PO TID #420 mL 04/08/23 suspension (Carafate) Allergies Allergy/AdvReac Type Severity Reaction Status Date / Time Penicillins Allergy Anaphylaxis Verified 11/26/23 10:42 Review of Systems 2 Review of Systems: Yes all other systems are reviewed and are negative [facility] Past Medical History Medical History Asthma CHF (congestive heart failure) Maurisio's disease HTN (hypertension) Social History Social History Alcohol intake: current Alcohol intake frequency: holidays/special occasions only Substance Use Type: Marijuana Advance Directives: No Advance Directives Information Provided: Yes Physical Exam ED Vital Signs: Vital Signs - 24 hr 11/26/23 10:39 11/26/23 11:30 Temperature 98.9 F 98.3 F Pulse Rate 68 57 Respiratory Rate 20 18 Blood Pressure 194/99 H 154/95 H Pulse Oximetry 99 98 Oxygen Delivery Method Room Air Room Air BMI result Body Mass Index 34.0 Const Other: The patient is awake and alert. She does not appear any distress. HENMT Other: Face is symmetric, mucous membranes moist, pharynx is unremarkable. Eyes Other: Pupils are round equal, conjunctivae are clear, extraocular movements intact Neck Other: No lymphadenopathy. No JVD. Chest Other: There is parasternal tenderness bilaterally Resp Effort & Inspection: normal respiratory effort Auscultation: clear to auscultation bilaterally Cardio Jugular venous distension: no JVD Rate: regular rate Rhythm: regular rhythm Heart sounds: S1 normal heart sound present and S2 normal heart sound present GI Other: Abdomen is soft and nontender Skin Other: Skin is dry and unremarkable Neuro Other: The patient is awake, alert, oriented, appropriate. Cranial nerves are intact. She moves all 4 extremities normally and is grossly neurologically intact. Extrem Other: No peripheral edema, no calf swelling or tenderness, no asymmetry Medications Administered Discontinued Medications Generic Name Dose Route Start Last Admin Trade Name Freq PRN Reason Stop Dose Admin Ketorolac Tromethamine 30 mg 11/26/23 14:46 11/26/23 14:56 Ketorolac Tromethamine 30 Mg/Ml Vial IM 11/26/23 14:47 30 mg ONCE ONE Administration Medical Decision Making Medical Decision Making [facility] Narrative: The patient is a 38-year-old woman who presents with 2 days of not feeling well. Symptoms include chest tightness, cough, shortness of breath. Clinically the patient does not look obviously ill in any way. She is PERC negative. EKG shows sinus rhythm with a significant sinus arrhythmia at 62 beats per minute. Chest x-ray is clear. She has a normal CBC with a white count of 5.6 and a normal differential. Troponin, proBNP, and CRP are all normal. Clinically the patient most likely seems to have some kind of a viral illness probably causing some degree of costochondritis. My suspicion for a more dangerous process would be very low and I think she may be discharged with instructions for symptomatic care and expectation of getting better sometime soon. She should follow up with her regular doctor or return to the ER if significantly worse. Lab Data 11/26/23 13:39 11/26/23 13:39 Labs: Lab Results 11/26/23 11/26/23 Range/Units 12:06 13:39 WBC 5.6 (4.8-10.8) X10*3/uL RBC 4.59 (4.20-5.50) X10*6/uL Hgb 13.3 (12.0-16.0) g/dl Hct 39.0 (37.0-47.0) % MCV 85.0 (80.0-98.0) fL MCH 29.0 (27.0-33.0) pg MCHC 34.1 (31.0-35.0) g/dl RDW 12.3 (11.0-16.0) % Plt Count 231 (160-400) X10*3/uL MPV 11.0 (9.4-12.3) fL Immature Gran % (Auto) 0.2 (0.0-0.4) % Neut % (Auto) 62.1 (45-73) % Lymph % (Auto) 26.5 (20-40) % Cottle % (Auto) 7.5 (2-11) % Eos % (Auto) 3.2 (0-4) % Baso % (Auto) 0.5 (0-2) % Lymph # (Auto) 1.5 (1.2-4.9) X10*3/uL [place]le # (Auto) 0.4 (0.1-1.2) X10*3/uL Eos # (Auto) 0.2 (0.0-0.4) X10*3/uL Baso # (Auto) 0.0 (0.0-0.2) X10*3/uL Abs Immat Gran (auto) 0.01 (0.00-0.03) X10*3/uL Absolute Neuts (auto) 3.5 (2.0-8.3) x10*3/uL Absolute Nucleated RBC 0.000 (0.0-0.012) X10*3/uL Nucleated RBC % (auto) 0.0 (0.0-0.2) /100WBC Sodium 142 (135-145) mmol/L Potassium 4.0 (3.3-5.1) mmol/L Chloride 105 (96-108) mmol/L Carbon Dioxide 26 (22-29) mmol/L Anion Gap 15 (12-20) BUN 10 (9-16) mg/dL Creatinine 0.73 (0.5-1.4) mg/dL Estim Creat Clear Calc 103.1 Estimated GFR > 60 Random Glucose 85 (60-115) mg/dL Calcium 9.7 (8.4-10.2) mg/dL Magnesium 2.0 (1.6-2.6) mg/dL Total Bilirubin 0.6 (0.0-1.0) mg/dL Direct Bilirubin 0.2 (0.0-0.5) mg/dL AST 15 (5-31) U/L ALT 11 (0-31) U/L Alkaline Phosphatase 54 (39-117) U/L Troponin I High Sens < 2.7 (<3.5-17.0) ng/L C-Reactive Protein 0.10 (< or = 0.50) mg/dL B-Natriuretic Peptide 20 (<100) pg/mL Total Protein 7.1 (6.5-8.0) g/dL Albumin 4.2 (3.5-5.0) g/dL Lipase 18 (8-78) U/L Beta HCG, Quant < 2 mIU/mL Urine Color Yellow Urine Appearance Clear Urine pH 6.5 (5.0-9.0) Ur Specific [place] 1.015 (1.005-1.025) Urine Protein Negative (Neg-Trace) mg/dL Urine Glucose (UA) Negative (Negative) mg/dL Urine Ketones Trace (Negative) mg/dL Urine Blood Negative (Negative) Urine Nitrite Negative (Negative) Ur Leukocyte Esterase Trace H (Negative) Urine RBC 0-2 (0-2) /HPF Urine WBC 0-5 (0-5) /HPF Ur Squamous Epith Cells 0-2 (0-2) /HPF Urine Bacteria None Seen (None Seen) Hyaline Casts 0-2 (0-2) /LPF COVID-19 (NICOLE) Negative (Negative) COVID-19 Clin Com See Note Influenza Type A (AMIE) Negative (Negative) Influenza Type B (AMIE) Negative (Negative) Influenza A & B Note See Note Discharge Plan Discharge Clinical Impression: Chest pain, Cough Patient Disposition: Home, Self-Care Additional Instructions: Your testing in the emergency room today is very reassuring. I think that your symptoms are probably related to some kind of viral infection which I suspect will be self-limited and which I suspect will get better in the next few days. Use acetaminophen (Tylenol) as needed for discomfort. Use your albuterol nebulizer for cough. Drink lot of fluids. Please stay in touch with your regular doctor for additional advice as needed and get rechecked in the office soon. If you feel significantly worse at any time please return to the emergency department. Prescriptions: No Action prednisone 20 mg tablet 40 mg PO DAILY Qty: 10 0RF albuterol sulfate 90 mcg/actuation HFA aerosol inhaler 2 puff inhalation QID PRN (Reason: shortness of breath or wheezing) Qty: 8.5 0RF sucralfate [Carafate] 100 mg/mL suspension 10 ml PO TID Qty: 420 0RF Rx Instructions: swish in mouth and swallow; use after food/drink Referrals: Alberto Carrasco MD [Primary Care Provider] - (Chest pain, cough) Stand Alone Forms: Work/School Release Interventions: ED Discharge Assessment Last Done: 11/26/23 15:04 Discharge Date/Time: 11/26/23 15:04
--- NOTE | 2023-11-26 13:20 | ECG_ITS ---
Test Reason : CP Blood Pressure : / mmHG Vent. Rate : 062 BPM Atrial Rate : 062 BPM P-R Int : 118 ms QRS Dur : 086 ms QT Int : 426 ms P-R-T Axes : 029 036 038 degrees QTc Int : 432 ms Sinus rhythm with marked sinus arrhythmia Otherwise normal ECG When compared with ECG of 01-NOV-2021 18:21, No significant change was found Referred By: Jordan Moseley Electronically Signed By:Refugio Sandy
[2023-11-26 13:45] LABS: MANUAL DIFF FLAG NO
[2023-11-26 13:50] LABS: Basophils Percent Auto 0.5 % (0-2); Eosinophils Absolute Auto 0.2 X10*3/uL (0.0-0.4); Eosinophils Percent Auto 3.2 % (0-4); Hemoglobin 13.3 g/dl (12.0-16.0); Imm Gran Abs Auto 0.01 X10*3/uL (0.00-0.03); Imm Gran Pct Auto 0.2 % (0.0-0.4); Lymphocytes Absolute Auto 1.5 X10*3/uL (1.2-4.9); Lymphocytes Percent Auto 26.5 % (20-40); Mean Corpuscular HGB Conc 34.1 g/dl (31.0-35.0); Monocytes Absolute Auto 0.4 X10*3/uL (0.1-1.2); Monocytes Percent Auto 7.5 % (2-11); Neutrophils Absolute Auto 3.5 x10*3/uL (2.0-8.3); Neutrophils Percent Auto 62.1 % (45-73); Platelet Count 231 X10*3/uL (160-400); Red Blood Count 4.59 X10*6/uL (4.20-5.50); Red Cell Distribution Width 12.3 % (11.0-16.0); White Blood Count 5.6 X10*3/uL (4.8-10.8)
[2023-11-26 14:02] LABS: Alanine Aminotransferase 11 U/L (0-31); Albumin Level 4.2 g/dL (3.5-5.0); Alkaline Phosphatase 54 U/L (39-117); Anion Gap 15 (12-20); Aspartate Amino Transferase 15 U/L (5-31); Bilirubin Direct 0.2 mg/dL (0.0-0.5); Bilirubin Total 0.6 mg/dL (0.0-1.0); Blood Urea Nitrogen 10 mg/dL (9-16); Calcium 9.7 mg/dL (8.4-10.2); Carbon Dioxide 26 mmol/L (22-29); Chloride 105 mmol/L (96-108); Creatinine Clr Calc Pharmacy 103.1; Estimated Glomerular Filt Rate > 60; Glucose Random 85 mg/dL (60-115); Lipase 18 U/L (8-78); Sodium 142 mmol/L (135-145); Total Protein 7.1 g/dL (6.5-8.0)
[2023-11-26 14:03] LABS: IDNOW Serial# 08D9AD1C; Influenza A Negative (Negative); Influenza B2 Negative (Negative)
[2023-11-26 14:04] LABS: COVID-19 Test Negative (Negative); IDNOW Serial# 58CA691E
[2023-11-26 14:07] LABS: B Type Natriuretic Peptide 20 pg/mL (<100)
[2023-11-26 14:11] LABS: HCG Quantitative < 2 mIU/mL; Troponin-I High Sensitivity < 2.7 ng/L (<3.5-17.0)
[2023-11-26] MEDS: Ketorolac Tromethamine 30 MG/ML VIAL IM (14:56)
== END 2023-11-26 15:04 | disposition home or self-care (01) ==
PROVIDERS: Emergency Provider Emergency Medicine; PCP Internal Medicine Sports Medicine
DX: R07.9 Chest pain, unspecified (principal); R05.9 Cough, unspecified; R06.02 Shortness of breath; Z11.52 Encounter for screening for COVID-19
CPT/HCPCS: 36415; 80048; 80076; 81001; 83690; 83735; 83880; 84484; 84702; 85025; 86140; 87502; 87635; 93005; 96372; 99284; J1885

== ENCOUNTER → 2023-11-26 13:20 | Outpatient (BNV) | payer OTHER, SELFPAY | PROVIDERS: Emergency Provider Emergency Medicine; PCP Internal Medicine Sports Medicine; Visit Provider Internal Medicine Cardiovascular Disease | DX: I49.9 Cardiac arrhythmia, unspecified (principal) | CPT/HCPCS: 93010 ==

== ENCOUNTER 2024-01-14 10:15 | Emergency (ER) | payer OTHER, SELFPAY ==
--- NOTE | ~2024-01-14 | XR_ITS ---
EXAMINATION: XR CHEST CLINICAL INFORMATION: Reason for Exam cough COMPARISON: Chest radiograph 11/01/2021 TECHNIQUE: One view of the chest FINDINGS: Lines and tubes: None. Clear lungs. No pleural effusion. No pneumothorax. Unchanged cardiomediastinal silhouette. XR/XR chest 1V IMPRESSION: * Clear lungs.
[2024-01-14 10:25] VITALS: BP 147/97; PULSE 98; RESP 18; TEMP 37.3; O2SAT 99; BMI 32.9
--- NOTE | 2024-01-14 10:29 | ECG_ITS ---
Test Reason : COUGH/DIZZY Blood Pressure : / mmHG Vent. Rate : 106 BPM Atrial Rate : 106 BPM P-R Int : 128 ms QRS Dur : 084 ms QT Int : 338 ms P-R-T Axes : 027 024 007 degrees QTc Int : 448 ms Sinus tachycardia Possible Left atrial enlargement Borderline ECG When compared with ECG of 26-NOV-2023 13:30, Vent. rate has increased BY 44 BPM T wave inversion now evident in Inferior leads Referred By: Generic ED Physician Electronically Signed By:HEATHER NGUYEN MD
--- NOTE | 2024-01-14 10:46 | ED.URI ---
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 Admits her daughter is home ill with a cold. No other known sick contacts. Admits that she took a dose of prednisone last night that was left over from a previous asthma exacerbation. She last used her albuterol inhaler this morning as she felt slightly short of breath. Denies wheezing. She took 800mg Ibuprofen at 0800 this morning. Denies sore throat, chest pain, shortness of breath, flank pain, dysuria, hematuria. She adds that she is now 3 days late for her menstrual period. LMP 12/18. She is sexually active and does not use protection. She is not on control. Denies nausea, vomiting, abdominal pain, vaginal discharge or bleeding. Related Data Previous Rx's Medication Instructions Recorded albuterol sulfate 90 mcg/actuation 2 puff inhalation QID PRN 11/01/21 aerosol inhaler shortness of breath or wheezing #8.5 grams prednisone 20 mg tablet 40 mg (2 x 20 mg) PO DAILY #10 tabs 11/01/21 sucralfate 100 mg/mL oral 10 ml PO TID #420 mL 04/08/23 suspension (Carafate) oseltamivir 75 mg capsule (Tamiflu) 75 mg PO BID 5 days #10 caps 01/14/24 prednisone 20 mg tablet 40 mg (2 x 20 mg) PO DAILY 5 days 01/14/24 #10 tabs Allergies Allergy/AdvReac Type Severity Reaction Status Date / Time Penicillins Allergy Anaphylaxis Verified 01/14/24 10:29 Review of Systems Review of Systems: Constitutional: No fatigue, night sweats, weight changes, +chills, +fever ENT/Mouth: No hearing loss, sinus pain, rhinorrhea, sore throat, +congestion, +ear pain Eyes: No eye pain, swelling, redness, vision changes, discharge Cardio: No chest pain, palpitations, HERNANDEZ, orthopnea, peripheral edema Pulm: No SOB, sputum, wheezing, dyspnea, hemoptysis, +cough GI: No nausea, vomiting, hematemesis, abdominal pain, diarrhea, constipation, hematochezia, melena : No irregular bleeding, dysuria, frequency, urgency, hesitancy, hematuria, flank pain, urinary flow changes, urinary incontinence or retention MSK: No back pain, neck pain, joint pain, +myalgias Skin: No lesions, rashes Neuro: No weakness, numbness, paresthesias, LOC, dizziness, headache Psych: No anxiety/panic, depression, SI/HI, AH/VH All other systems reviewed and are negative. [facility] Past Medical History Attestation statement: The following information was validated with the patient. Source: old records reviewed and nursing notes reviewed Medical History Asthma HTN (hypertension) Orion's disease CHF (congestive heart failure) Social History Social History Alcohol intake: current Alcohol intake frequency: holidays/special occasions only Substance Use Type: Marijuana Advance Directives: No Advance Directives Information Provided: No Physical Exam Vital Signs: Vital Signs: Last Vital Signs Temp 98 F 01/14/24 13:09 Pulse 90 01/14/24 13:09 Resp 18 01/14/24 13:09 BP 133/93 H 01/14/24 13:09 Pulse Ox 99 01/14/24 10:25 O2 Del Method Room Air 01/14/24 10:25 BMI result Body Mass Index 32.9 Hypertensive, vitals otherwise wnl Const: General: cooperative, comfortable, no acute distress and ill appearing Orientation/consciousness: patient oriented x3 Limitations: no limitations HEENT: Other: + No pain on manipulation of left pinna or tragus. No mastoid tenderness. Left EAC without erythema, edema or discharge. TM intact without erythema, effusion, or bulging. + No pain on manipulation of right pinna or tragus. No mastoid tenderness. Right EAC without erythema, edema or discharge. TM intact without erythema, effusion, or bulging. + posterior oropharynx without erythema or edema, uvula midline, no tonsillar exudates, speaking in complete sentences Head: Yes normal to inspection, Yes normocephalic and Yes atraumatic Ears: mastoids normal Eyes: General: appearance normal, both eyes and all related structures Sclerae: sclerae normal Pupils: Equal, round and reactive pupils present Neck: Neck: Yes normal visual inspection, Yes full ROM and Yes no lymphadenopathy Resp: Other: + lungs cta b/l, no wheezes, crackles or rhonchi. normal respiratory effort. satting 99% on RA. Cardio: Rate: regular rate Rhythm: regular rhythm GI: Inspection: Yes normal to inspection : General: Yes no CVA tenderness Back/Spine/Pelvis: Back: no CVA tenderness Skin: General skin exam: no rashes or lesions noted Neuro: General: patient oriented x3 and gait normal Cranial nerves: Yes Equal, round and reactive pupils present Extrem: General: Yes normal to inspection Course Course Course Narrative: 1258-- urine negative for nitrates and leukocyte esterase. it does show 1+ bacteria however there are 11-20 epithelial cells and I suspect this is likely contamination rather than true infection. patient does not currently endorse urinary symptoms. she tested positive for flu A. she tested negative for flu b, rsv, and covid. after discussion of risks vs benefits, she has opted to start tamiflu today. she will be given a dose of this in the ED. her temp is 99.1F and she will be given a dose of toradol while in ED. chest xray is unremarkable and does not show evidence of pneumonia. discussed all work up results with patient. Patient has remained stable throughout ED visit today. Discussed worrisome signs and symptoms and when to return to the ED. All questions answered at this time. Patient is agreeable with disposition and stable for discharge. 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 Patient hypertensive, vitals otherwise wnl. EKG on arrival shows sinus tachy, likely secondary to albuterol use prior to arrival. She is ill appearing however in no acute distress. bilateral EACs and TMs wnl. posterior oropharynx wnl. lungs are cta b/l without crackles, rhonchi or wheezes. RRR. No rashes. No calf tenderness. Differential diagnosis includes viral syndrome, pneumonia, bronchitis Plan for serology, ekg, cxr, pain control, and re-evaluation. Differential Diagnosis Differential Diagnoses: The differential diagnosis associated with the presentation includes as above Admission/Observation not indicated Lab Data MDM Lab Attestation statement: I reviewed the patient's lab results. as above. Labs: Lab Results 01/14/24 01/14/24 Range/Units 11:13 11:15 Urine Color Dark Yellow Urine Appearance Turbid Urine pH 5.5 (5.0-9.0) Ur Specific [place] >= 1.030 H (1.005-1.025) Urine Protein 30 (1+) H (Neg-Trace) mg/dL Urine Glucose (UA) Negative (Negative) mg/dL Urine Ketones 15 (Negative) mg/dL Urine Blood Negative (Negative) Urine Nitrite Negative (Negative) Ur Leukocyte Esterase Negative (Negative) Urine RBC 0-2 (0-2) /HPF Urine WBC 0-5 (0-5) /HPF Ur Squamous Epith Cells 11-20 (0-2) /HPF Urine Bacteria 1+ (None Seen) Hyaline Casts 6-10 (0-2) /LPF Urine Test NEGATIVE (NEGATIVE) Influenza Type A (PCR) POSITIVE A (Negative) Influenza Type B (PCR) NEGATIVE (Negative) RSV RNA Qual (PCR) NEGATIVE (Negative) SARS-CoV-2 RNA (RT-PCR) NEGATIVE (Negative) Independent Interpretation I performed an independent interpretation of an: Plain X-Ray Interpretation: EKG showing sinus tachycardia at a rate of 106 bpm, QT 338 and QTC 448, no acute ischemic changes or ST elevations. I have personally reviewed chest xray and agree with radiologist's interpretation. Radiology Impression Discussion of test interpretation with radiology: I have reviewed the radiologist's reading. Radiologist Impression: EXAMINATION: XR CHEST CLINICAL INFORMATION: Reason for Exam cough COMPARISON: Chest radiograph 11/01/2021 TECHNIQUE: One view of the chest FINDINGS: Lines and tubes: None. Clear lungs. No pleural effusion. No pneumothorax. Unchanged cardiomediastinal silhouette. XR/XR chest 1V IMPRESSION: * Clear lungs. External Record Review External record reviewed: Inpatient record, Office record, Outpatient record, Prior outpatient labs, Prior outpatient radiology, Primary care record and Outside ED record Prescription Management I considered prescription management with: Pain Medication, Antiviral (tamiflu) and Other (prednisone) Chronic Conditions Patient?s care impacted by: Other (orion, asthma) Social Determinants Patient?s care significantly limited by Social Determinants of Health including: Other Social Determinant of Health Critical Care Time Critical Care Time Critical Care Time: No Discharge Plan Discharge Clinical Impression: Influenza A H1N1 infection Patient Disposition: Home, Self-Care Instructions: Influenza (ED), Flu Shot (Vaccine) for Adults (ED) Additional Instructions: You tested positive for influenza A today. You are contagious. Make sure you are limiting contact with others until you are symptom free. You have decided to start tamiflu and were given one dose of this in the ED today. Take this as prescribed over the next five days. Prednisone is a steroid that has been sent to your pharmacy. take this as prescribed over the next 5 days. In addition, take tylenol and ibuprofen at home for fever/body aches. Please ensure you are staying hydrated and getting adequate rest. Your urine was negative for both infection and . Your chest xray was normal. Follow up with PCP as needed. Please return with new or worsening symptoms. In an emergency call 911. Prescriptions: New oseltamivir [Tamiflu] 75 mg capsule 75 mg PO BID 5 Days Qty: 10 0RF prednisone 20 mg tablet 40 mg PO DAILY 5 Days Qty: 10 0RF No Action prednisone 20 mg tablet 40 mg PO DAILY Qty: 10 0RF albuterol sulfate 90 mcg/actuation HFA aerosol inhaler 2 puff inhalation QID PRN (Reason: shortness of breath or wheezing) Qty: 8.5 0RF sucralfate [Carafate] 100 mg/mL suspension 10 ml PO TID Qty: 420 0RF Rx Instructions: swish in mouth and swallow; use after food/drink Stand Alone Forms: Work/School Release Interventions: ED Discharge Assessment Last Done: 01/14/24 13:09 Discharge Date/Time: 01/14/24 13:11
[2024-01-14 11:37] LABS: UPreg QC Valid YES; Urine Pregnancy NEGATIVE (NEGATIVE)
[2024-01-14 12:08] LABS: Influenza A PCR POSITIVE (Negative); Influenza B PCR NEGATIVE (Negative); Resp Syncy Virus RNA Qual PCR NEGATIVE (Negative); SARS COV2 PCR INHOUSE NEGATIVE (Negative)
[2024-01-14 12:16] LABS: Appearance Urine Turbid; Color Urine Dark Yellow; Glucose Urine UA Negative (Negative); Leukocyte Esterase Urine Negative (Negative); Nitrite Urine Negative (Negative); PH 5.5 (5.0-9.0); Specific Gravity - Urine >= 1.030 (1.005-1.025); UMIC TRIGGER UACC YES; Urine Blood Negative (Negative); Urine Ketones 15 mg/dL (Negative); Urine Protein 30 (1+) mg/dL (Neg-Trace)
[2024-01-14 12:34] LABS: Bacteria Urine 1+ (None Seen); WBC Urine 0-5 /HPF (0-5)
[2024-01-14 12:35] LABS: RBC Urine 0-2 /HPF (0-2)
[2024-01-14] MEDS: Oseltamivir Phosphate 75 MG CAPSULE PO (12:56)
[2024-01-14] MEDS: Ketorolac Tromethamine 30 MG/ML VIAL IM (12:58)
[2024-01-14 13:09] VITALS: BP 133/93; PULSE 90; RESP 18; TEMP 36.6
== END 2024-01-14 13:11 | disposition home or self-care (01) ==
PROVIDERS: Emergency Provider Emergency Medicine; PCP Internal Medicine Sports Medicine
DX: J10.1 Influenza due to other identified influenza virus with other respiratory manifestations (principal); R50.9 Fever, unspecified; R05.9 Cough, unspecified
CPT/HCPCS: 0241U; 71045; 81001; 81003; 81025; 93005; 96372; 99284; J1885

== ENCOUNTER → 2024-01-14 10:29 | Outpatient (BNV) | payer OTHER, SELFPAY | PROVIDERS: Emergency Provider Emergency Medicine; PCP Internal Medicine Sports Medicine; Visit Provider Internal Medicine Cardiovascular Disease | DX: R00.0 Tachycardia, unspecified (principal) | CPT/HCPCS: 93010 ==

== ENCOUNTER 2025-09-22 23:07 | Emergency (ER) | payer OTHER, SELFPAY ==
--- OUTSIDE RECORDS SUMMARY | 2023-09-01 06:00 | XMS_ITS | Continuity of Care Document ---
Author Organization [facility] Address [address] [place] [address] [address] [place] [address] Phone Care Team Providers Care Mc Kay Stitcher Name Role Phone Ian CHAVIS FACS RVT [...] E&M Established 15 Mins [facility], [address] [place] [address] [address], [place], [id number], [place] tel:[phone] CVR - [facility] Chronic venous hypertension (idiopathic) with other complications of bilateral lower extremity 3 Ian CHAVIS FACS RVBrayan Paulino. [address] [facility], [address], [place], [address], [place]. tel:[phone] Referring Provider: RIKI HARMAN MD, [address] [place], [address]. tel:[phone] Family History Family Member Type Diagnosis Age At Onset No Information Payers Payer name Insurance type Covered libertarian ID Authoriza tion(s) [employer] [facility] [place] [id number] Social History Type Description Quantity Date Captured [...]
[2025-09-22 23:21] VITALS: BP 144/93; PULSE 63; RESP 16; TEMP 36.6; O2SAT 98; BMI 34.0
[2025-09-23 00:01] LABS: MANUAL DIFF FLAG NO
[2025-09-23 00:02] LABS: Hematocrit 40.3 % (37.0-47.0); Hemoglobin 13.7 g/dl (12.0-16.0); Imm Gran Abs Auto 0.02 X10*3/uL (0.00-0.03); Imm Gran Pct Auto 0.3 % (0.0-0.4); Lymphocytes Absolute Auto 1.7 X10*3/uL (1.2-4.9); Mean Corpuscular HGB Conc 34.0 g/dl (31.0-35.0); Mean Corpuscular Hemoglobin 29.1 pg (27.0-33.0); Mean Corpuscular Volume 85.7 fL (80.0-98.0); NRBC Abs Auto 0.000 X10*3/uL (0.0-0.012); NRBC Pct Auto 0.0 /100WBC (0.0-0.2); Platelet Count 223 X10*3/uL (160-400); Red Blood Count 4.70 X10*6/uL (4.20-5.50); White Blood Count 7.6 X10*3/uL (4.8-10.8)
[2025-09-23 00:04] LABS: Appearance Urine Clear; Glucose Urine UA Negative (Negative); PH 6.0 (5.0-9.0); Specific Gravity - Urine 1.025 (1.005-1.025)
[2025-09-23 00:06] LABS: UPreg QC Valid YES
--- OUTSIDE RECORDS SUMMARY | 2025-09-23 00:06 | XMS_ITS | Encounter Summary ---
Author Organization [facility] Address [address] [place] [address] Care Team Providers Care Helicopter Mechanic Name Role Phone Delvis Lama Primary Care Provider [phone] Encounter Details Date Type Department Care Team ([facility] st Contact Info) Description 07/09/2022 Telephone [facility] [address] [place] [id number] Telephone Intake, Staff Social History Tobacco Use Types Packs/Day Years Used Date Smoking Tobacco: Never Smokeless Tobacco: Never Comments Unknown Sex and Gender Information Value Date Recorded Sex Assigned at Female 12/11/2021 8:37 AM EST Legal Sex Female 7:01 PM EDT Gender Identity Female 12/11/2021 8:37 AM EST Sexual Orientation Straight 12/11/2021 8: 37 AM EST documented as of this encounter Miscellaneous Notes * Telephone Encounter - Alecia Acevedo - 07/09/2022 2:37 PM EDT Pt calling today to schedule follow up with Dr Leary. Pt is ready for surgery but needs one last appt with Dr leary before being cleared. Next avail is in dec. Pt is trying to have this done thisyear. Please call pt to schedule sooner appt. Thank you - PAC documented in this encounter Plan of Treatment Not on file documented as of this encounter Visit Diagnoses Not on filedocumented in this encounter Care Teams Helicopter Mechanic Relationship Specialty Start Date End Date Delvis Lama [address] [place] [address] PCP - General 7/13/20 documented as of this encounter
--- OUTSIDE RECORDS SUMMARY | 2025-09-23 00:06 | XMS_ITS | Clinical Summary ---
Author Organization [facility] Address [address] [place] [address] Care Team Providers Care Mobile Application Tester Name Role Phone Delvis Lama Primary Care Provider [phone] Allergies Active Allergy Reactions Criticality Noted Date Comments Rifle Anaphylaxis High 12/24/2022 Apple Unknown 11/05/2020 Egg Nausea 12/24/2022 Nut - Unspecified Unknown 11/05/2020 Penicillins Rash Medium 06/10/2020 Soy Anaphylaxis High 12/24/2022 Tree Nuts Unknown 12/24/2022 Pt had allergy test and told she was allergic Medications loratadine (CLARITIN) 10 mg tablet Take 10 mg by mouth daily. 0 Active albuterol (PROAIR HFA,VENTOLIN HFA) 90 mcg inhaler INL 2 PUFFS PO Q 4 H PRN 0 Active Flovent HFA 220 mcg/actuation inhaler INHALE 1 PUFF PO BID 0 Active fluticasone propionate (FLONASE) 50 mcg/actuation nasal spray INSTILL 1 SPRAY INTO EACH NOSTRIL D 0 Active ergocalciferol (VITAMIN D2) 1,250 mcg (50,000 unit) capsule TK 1 C PO Q WEEKS 0 Active lidocaine (LIDODERM) 5% patch Apply 1 patch topically to the affected area once a day. 1 Active hydrOXYzine (VISTARIL) 25 mg capsule Take 25 mg by mouth. 2 Active methocarbamoL (ROBAXIN) 750 mg tablet Take 750 mg by mouth every 6 hours as needed. 3 Active bimatoprost (LATISSE) 0.03 % ophthalmic solution nightly. 3 Active pedi multivit [id number]-yrx K1 (CEROVITE JR) 18 mg iron- 10 mcg tablet Chew and swallow 1 tablet by mouth once a day. 30 tablet 5 01/05/2023 4:22 PM EST 3 Active calcium carbonate-vitam in D3 500 mg-10 mcg (400 unit) chewable tablet Chew and swallow 1 tablet by mouth 2 times a day. 60 tablet 5 01/05/2023 4:22 PM EST 3 Active famotidine (PEPCID) 20 mg tablet Take 1 tablet (20 mg total) by mouth once a day. 30 tablet 5 01/05/2023 4:22 PM EST 3 Active magnesium hydroxide (MILK OF MAGNESIA) 400 mg/5 mL suspension Take 30 mL by mouth daily as needed for constipation. 3 Active polyethylene glycol 3350 (MIRALAX) powder Take 17 g by mouth daily as needed for constipation. Mix powder in 4 oz of water or protein shake daily as needed for constipation. 3 Active cyanocobalamin, vitamin B-12, 500 mcg Dissolve 1 tablet under the tongue once a day. 90 each 5 3 Active Active Problems Problem Noted Date Diagnosed Date PTSD (post-traumatic stress disorder) 09/29/2022 Major depressive disorder with single episode Maurisio's thyroiditis 09/22/2022 Primary hypertension 09/22/2022 Rheumatoid arthritis involvi ng multiple sites with positive rheumatoid factor 09/22/2022 Irritable bowel syndrome wit h both constipation and diarrhea 09/22/2022 Hypercholesterolemia 09/22/2022 Hyperparathyroidism 09/22/2022 Gastroesophageal reflux disease without esophagi tis 09/22/2022 H. pylori infection 09/22/2022 Class 1 obesity 09/22/2022 Mild persistent asthma without complication 03/2021 Allergic rhinitis 11/05/2020 Resolved Problems Problem Noted Date Diagnosed Date Resolved Date Mild intermittent asthma without complication 09/22/20 22 09/22/2022 Obstructive sleep apnea syndrome 11/05/2020 07/06/2023 Family History Medical History Relation Name Comments Cancer Father Diabetes Father Stroke Mother Relation Name Status Comments Father Mother Social History Tobacco Use Types Packs/Day Years Used Date Smoking Tobacco: Former Cigarettes 0.5 2 2 005 - 2007 Smokeless Tobacco: Never Alcohol Use Standard Drinks/Week Comments Yes 0 (1 standard drink = 0.6 oz pur e alcohol) rare Comments No Sex and Gender Information Value Date Recorded Sex Assigned at Female 12/11/2021 8:37 AM EST Legal Sex Female 7:01 PM EDT Gender Identity Female 12/11/2021 8:37 AM EST Sexual Orientation Straight 12/11/2021 8: 37 AM EST Last Filed Vital Signs Vital Sign Reading Time Taken Comments Blood Pressure 125/79 07/06/2023 11:58 AM EDT Pulse 53 07/06/2023 11:58 AM EDT Temperature 36.9 C (98.4 F) 01/05/2023 12:37 PM EST Respiratory Rate 18 01/05/2023 2:02 PM EST Oxygen Saturation 99% 07/06/2023 11:58 AM EDT Inhaled Oxygen Concentration - - Weight 82.8 kg (182 lb 8.7 oz) 07/06/2023 11:58 AM EDT Height 159 cm (5' 2.6 ) 01/04/2023 9:07 AM EST Body Mass Index 32.75 01/04/2023 9:07 AM EST Plan of Treatment Health Maintenance Due Date Last Done Comments Cervical Cancer Screening 1983 HIV Screening 1983 HPV and Pap Smear 1983 Hepatitis C Screening 1983 Pap Smear 1983 Varicella Vaccines (1 of 2 - 13+ 2-dose series) 1996 Hepatitis B Vaccines (1 of 3 - 19+ 3-dose series) 2002 07/22/2008, 06/21/2008 Pneumococcal Vaccine: Pediat marla (0-5 Years) and At-Risk Patients (6-50 Years) (1 of 2 - PCV) 2002 Mammogram 2023 Basic Metabolic Panel 12/24/2023 12/24/2022 Alcohol/Substance Use Screening 10/31/2024 Depression Screening and Follow-Up 10/31/2024 Social Drivers of Health Kasey ual Screening 10/31/2024 Influenza Vaccine (#1) 2025 2, 10/01/2021, 10/01/2021, Additional history exists COVID-19 Vaccine (3 - 2024-2 6 season) 2025 12/01/2021, 11/09/2021 DTaP,Tdap,and Td Vaccines (6 - Td or Tdap) 10/04/2029 10/04/2019, 07/20/2013, 07/26/2012, Additional history exists Procedures * Due to [place] [employer] law, this organization might not be sharing negative HIV tests. Procedure Name Priority Date/Time Associated Diagnosis Comments BASIC METABOLIC PANEL Routine 12/24/2022 3:07 PM EST Primary hypertension Class 2 obesity Preop examination from Last 3 Months or Most Recently Relevant to Health Maintenance Results * Due to [place] [employer] law, this organization might not be sharing negative HIV tests. * (ABNORMAL) Basic Metabolic Panel (12/24/2022 3:07 PM EST) NA 137 135 - 145 mmol/L 12/24/2022 4:09 PM [facility] K 4.5 3.5 - 5.3 mmol/L 12/24/2022 4:09 PM [facility] Cl 106 97 - 110 mmol/L 12/24/2022 4:09 PM [facility] CO2 29 24 - 32 mmol/L 12/24/2022 4:09 PM [facility] BUN 14 7 - 23 mg/dL 12/24/2022 4:09 PM [facility] Creatinine 0.70 0.50 - 1.20 mg/dL 12/24/2022 4:09 PM [facility] Glucose 91 70 - 99 mg/dL 12/24/2022 4:09 PM [facility] Calcium 9.9 8.7 - 10.7 mg/dL 12/24/2022 4:09 PM [facility] Anion Gap 2(L) 5 - 15 12/24/2022 4:09 PM [facility] eGFR >90 >=90 mL/min/1.7 3m2 12/24/2022 4:09 PM EST [facility] Comment: Estimated Glomerular Filtration Rate (GFR) calculated using the CKD-EPI refit equation. The different stages of CKD form a continuum. The stages of CKD are classified as follows : Stage 1: Normal or increased GFR (>90 mL/min/1.73 m2) Stage 2: Mild reduction in GFR (60-89 mL/min/1.73 m2) Stage 3a: Moderate reduction in GFR (45-59 mL/min/1.73 m2) Stage 3b: Moderate reduction in GFR (30-44 mL/min/1.73 m2) Stage 4: Severe reduction in GFR (15-29 mL/min/1.73 m2) Stage 5: Kidney failure (GFR < 15 mL/min/1.73 m2 or dialysis) Blood Structure of peripheral vein / Unknown Venipuncture / Unknown 12/24/2022 3:07 PM EST 12/24/2022 3:43 PM EST Klever Kaur MD LAB BLOOD ORDERABLES Trupti l Result [facility] [address] [place] [address], from Last 3 Months or Most Recently Relevant to Health Maintenance Insurance [facility] MEDICAID Advance Directives Documents on File Type Date Recorded Patient Customer Specialist Expl anation Health Care Proxy 01/04/2023 9:56 AM * Full Code (Latest Code Status on File) Date Activated Date Inactivated Comments 01/04/2023 2:12 PM 01/05/2023 7:09 PM * Full Code Date Activated Date Inactivated Comments 01/04/2023 9:12 AM 01/04/2023 2:12 PM Care Teams Mobile Application Tester Relationship Specialty Start Date End Date Delvis Lama [address] [place] [address] PCP - General 05/12/20
--- OUTSIDE RECORDS SUMMARY | 2025-09-23 00:06 | XMS_ITS | Encounter Summary ---
Author Organization [facility] Address [address] [place] [address] Care Team Providers Care Food Services Manager Name Role Phone Delvis Lama Primary Care Provider Encounter Details Date Type Department Care Team (Late st Contact Info) Description 09/29/2022 Documentation [facility] Surgery [address] [place], [place] [phone] Klever Kaur MD [address] [place], [place] [phone] Social History Tobacco Use Types Packs/Day Years Used Date Smoking Tobacco: Former Cigarettes 0.5 2 2 005 - 2006 Smokeless Tobacco: Never Alcohol Use Standard Drinks/Week Comments Never 0 (1 standard drink = 0.6 oz pur e alcohol) Comments Unknown Sex and Gender Information Value Date Recorded Sex Assigned at Female 12/11/2021 8:37 AM EST Legal Sex Female 7:01 PM EDT Gender Identity Female 12/11/2021 8:37 AM EST Sexual Orientation Straight 12/11/2021 8: 37 AM EST documented as of this encounter Plan of Treatment Not on file documented as of this encounter Visit Diagnoses Not on filedocumented in this encounter Care Teams Food Services Manager Relationship Specialty Start Date End Date Delvis Lama [address] [place] [address] PCP - General 05/12/20 documented as of this encounter
--- OUTSIDE RECORDS SUMMARY | 2025-09-23 00:06 | XMS_ITS | Encounter Summary ---
Author Organization [facility] Address [address] [place] [address] Care Team Providers Care Datastage Consultant Name Role Phone Delvis Lama Primary Care Provider [phone] Encounter Details Date Type Department Care Team (Late st Contact Info) Description 03/24/2023 Anaphorehart Message [facility] Operating Room [address] [place] [address] Mychart, Generic Provider [address] [place] [address] appt Social History Tobacco Use Types Packs/Day Years [...] on filedocumented in this encounter Care Teams Datastage Consultant Relationship Specialty Start Date End Date Delvis Lama [address] [place] [address] PCP - General 05/12/20 documented as of this encounter
[2025-09-23 00:16] LABS: Alanine Aminotransferase 19 U/L (0-31); Albumin Level 4.4 g/dL (3.5-5.0); Alkaline Phosphatase 50 U/L (39-117); Anion Gap 10 (12-20); Aspartate Amino Transferase 20 U/L (5-31); Blood Urea Nitrogen 15 mg/dL (9-16); Calcium 9.2 mg/dL (8.4-10.2); Carbon Dioxide 26 mmol/L (22-29); Chloride 109 mmol/L (96-108); Creatinine Clr Calc Pharmacy 111.9; Estimated Glomerular Filt Rate > 60; Potassium 4.3 mmol/L (3.3-5.1); Sodium 141 mmol/L (135-145); Total Protein 6.9 g/dL (6.5-8.0)
--- NOTE | 2025-09-23 00:35 | ED_ITS ---
HPI - General Adult General Chief complaint: Abdominal Pain Stated complaint: lower abdominal cramping, back pain Time Seen by Provider: 09/22/25 23:51 Source: patient, RN notes reviewed and old records reviewed Mode of arrival: ambulatory Limitations: no limitations History of Present Illness ED Provider: Nat VIRK narrative: Patient is a 39 year old female with a past medical history of ectopic presenting today with a 3 day history of fatigue, bilateral pelvic pain, and lower back pain. LMP 08/10, 2 days ago had a negative at home test. Pt does endorse an increase in vaginal discharge, denies smell, discomfort, pruritis, or vaginal bleeding. Denies changes in BM, fever, pain with urination. Patient states at a previous visit had a negative urine , but a positive serum hcg. The patient reports that she is monogamous and denies any concern for sexually transmitted infections Related Data Previous Rx's ?Medication ?Instructions ?Recorded albuterol sulfate 90 mcg/actuation 2 puff inhalation Q ID PRN 11/01/21 aerosol inhaler shortness of breath or wheez ing #8.5 grams prednisone 20 mg tablet 40 mg (2 x 20 mg) PO DAILY # 10 tabs 11/01/21 sucralfate 100 mg/mL oral 10 ml PO TID #420 mL 3 suspension (Carafate) oseltamivir 75 mg capsule (Tamiflu) 75 mg PO BID 5 day s #10 caps 01/14/24 prednisone 20 mg tablet 40 mg (2 x 20 mg) PO DAILY 5 days 01/14/24 #10 tabs Allergies Allergy/AdvReac Type Severity Reaction Status Date / Time Penicillins Allergy Anaphylaxis Verified 09/22/25 23:23 Review of Systems 2 Constitutional: Constitutional: Reports as per HPI, Denies chills, Denies fever(s) and Denies headache(s) ENT: Denies headache(s) Cardiovascular: Cardiovascular: Denies chest pain and Denies dyspnea Respiratory: Respiratory: Denies cough and Denies dyspnea Gastrointestinal: Gastrointestinal: Denies abdominal pain, Denies constipation and Denies vomiting Genitourinary: Genitourinary: Denies dysuria Neurologic: Denies headache(s) and Denies focal weakness [facility] Past Medical History Medical History Asthma HTN (hypertension) Maurisio's disease CHF (congestive heart failure) Social History Social History Unable to assess alcohol history related to: Unknown Alcohol intake: current Alcohol intake frequency: does not drink Smoked in Last 30 Days: No Use of substances other than those prescribed or required for medical reasons: No Substance Use Type: Marijuana Advance Directives: No Advance Directives Information Provided: No Do you have a plan to hurt others: No Plan Physical Exam ED Vital Signs: Vital Signs - 24 hr 09/22/25 23:21 Temperature 98 F Pulse Rate 63 Respiratory Rate 16 Blood Pressure 144/93 H Pulse Oximetry 98 Oxygen Delivery Method Room Air BMI result Body Mass Index 34.0 Const General: healthy appearing, comfortable, no acute distress, alert and awake Nutritional Appearance: well nourished Orientation/consciousness: patient oriented x3 HENMT Head: Yes normocephalic and Yes atraumatic Neck Neck: Yes full ROM Resp Effort & Inspection: normal respiratory effort, able to speak in complete sentences and no audible wheezes GI Inspection: No distended Palpation (GI): Soft to palpation, not firm, Tenderness to palpation present (GI) in the LLQ and in the RLQ, no guarding and not rigid Auscultation: normoactive bowel sounds Skin General skin exam: no rashes or lesions noted and elasticity normal Neuro General: patient oriented x3 Cognition (Neuro): normal cognition Extrem Other: Moving all extremities well without any obvious deformities Medications Administered Discontinued Medications Generic Name Dose Route Start Last Admin Trade Name Freq PRN Reason Stop Dose Admin Acetaminophen 650 mg 09/23/25 00:32 09/23/25 00:51 Acetaminophen Oral Liquid 650 Mg/20.3 Ml Solution PO 09/23/25 00:33 650 mg ONCE ONE Administration Medical Decision Making Medical Decision Making MDM Narrative: 39-year-old female presents for evaluation of a 2-3 day history of lower abdominal pain, cramping. Her last menstrual cycle was 08/10/2025. She is . She reports that a couple of years ago she had a negative urine test but a positive serum hCG and ended up with a miscarriage. She denies any concern for sexually transmitted infections. She reports a previous ectopic but believes she still has all. Organs including both ovaries and fallopian tubes as well as her uterus. The triage note states that she had removal of the left fallopian tube. We did not have any previous imaging at this time. The patient has no fever, she has no leukocytosis. She is not . She denies any concern for sexually transmitted infections. I have a low suspicion for tubo-ovarian abscess. The patient is not and less likely ectopic. She has not have a UTI. She may have candidiasis versus bacterial vaginosis. I did discuss a pelvic examination with her and she opted for self swabbing. She reports that she has my chart and we will also follow up with her outpatient providers. Differential Diagnosis Differential Diagnoses: The differential diagnosis associated with the presentation includes Bacterial vaginosis Pelvic pain UTI Ovarian cyst Ectopic Lab Data MDM Lab Attestation statement: I reviewed the patient's lab results. No leukocytosis or anemia. Normal platelet count. No electrolyte abnormalities warranting dimension. Urinalysis that has not show signs of infection, she is not 09/22/25 23:51 09/22/25 23:51 Labs: Lab Results 09/22/25 09/22/25 Range/Units 23:51 23:56 WBC 7.6 (4.8-10.8) X10*3/uL RBC 4.70 (4.20-5.50) X10*6/uL Hgb 13.7 (12.0-16.0) g/dl Hct 40.3 (37.0-47.0) % MCV 85.7 (80.0-98.0) fL MCH 29.1 (27.0-33.0) pg MCHC 34.0 (31.0-35.0) g/dl RDW 12.3 (11.0-16.0) % Plt Count 223 (160-400) X10*3/uL MPV 11.7 (9.4-12.3) fL Immature Gran % (Auto) 0.3 (0.0-0.4) % Neut % (Auto) 65.9 (45-73) % Lymph % (Auto) 22.5 (20-40) % [place] % (Auto) 7.9 (2-11) % Eos % (Auto) 2.6 (0-4) % Baso % (Auto) 0.8 (0-2) % Lymph # (Auto) 1.7 (1.2-4.9) X10*3/uL [place] # (Auto) 0.6 (0.1-1.2) X10*3/uL Eos # (Auto) 0.2 (0.0-0.4) X10*3/uL Baso # (Auto) 0.1 (0.0-0.2) X10*3/uL Abs Immat Gran (auto) 0.02 (0.00-0.03) X10*3/uL Absolute Neuts (auto) 5.0 (2.0-8.3) x10*3/uL Absolute Nucleated RBC 0.000 (0.0-0.012) X10*3/uL Nucleated RBC % (auto) 0.0 (0.0-0.2) /100WBC Sodium 141 (135-145) mmol/L Potassium 4.3 (3.3-5.1) mmol/L Chloride 109 H (96-108) mmol/L Carbon Dioxide 26 (22-29) mmol/L Anion Gap 10 L (12-20) BUN 15 (9-16) mg/dL Creatinine 0.64 (0.5-1.4) mg/dL Estim Creat Clear Calc 111.9 Estimated GFR > 60 Random Glucose 105 (60-115) mg/dL Calcium 9.2 (8.4-10.2) mg/dL Total Bilirubin 0.2 (0.0-1.0) mg/dL AST 20 (5-31) U/L ALT 19 (0-31) U/L Alkaline Phosphatase 50 (39-117) U/L Total Protein 6.9 (6.5-8.0) g/dL Albumin 4.4 (3.5-5.0) g/dL Beta HCG, Quant < 2 mIU/mL Urine Color Yellow Urine Appearance Clear Urine pH 6.0 (5.0-9.0) Ur Specific [place] 1.025 (1.005-1.025) Urine Protein Negative (Neg-Trace) mg/dL Urine Glucose (UA) Negative (Negative) mg/dL Urine Ketones Negative (Negative) mg/dL Urine Blood Negative (Negative) Urine Nitrite Negative (Negative) Ur Leukocyte Esterase Negative (Negative) Urine Test NEGATIVE (NEGATIVE) Tests considered The following testing was considered but not selected: Consider CT scan of the abdomen pelvis to evaluate for intra-abdominal or pelvic pathology. But low suspicion for acute appendicitis or surgical abdomen and therefore this was deferred. Discharge Plan Discharge Clinical Impression: Pelvic pain Patient Disposition: Home, Self-Care Instructions: Pelvic Pain (ED) Additional Instructions: Your workup in the ER today was reassuring. This includes your labs, urinalysis. You are not as your urine and serum tests were both negative. You may use Tylenol as needed for pain. I do recommend that you follow up with your surgeon to see if you should be taking NSAIDs as this is contraindicated in some bariatric patients Return for new or worsening symptoms Prescriptions: No Action prednisone 20 mg tablet 40 mg PO DAILY Qty: 10 0RF albuterol sulfate 90 mcg/actuation HFA aerosol inhaler 2 puff inhalation QID PRN (Reason: shortness of breath or wheezing) Qty: 8.5 0RF sucralfate [Carafate] 100 mg/mL suspension 10 ml PO TID Qty: 420 0RF Rx Instructions: swish in mouth and swallow; use after food/drink oseltamivir [Tamiflu] 75 mg capsule 75 mg PO BID 5 Days Qty: 10 0RF prednisone 20 mg tablet 40 mg PO DAILY 5 Days Qty: 10 0RF Print Language: [place]
[2025-09-23] MEDS: Acetaminophen Oral Liquid 650 MG/20.3 ML SOLUTION PO (00:51)
[2025-09-23 01:41] VITALS: BP 130/87; PULSE 65; RESP 16; TEMP 36.6; O2SAT 98
[2025-09-23 03:27] LABS: Bacterial Vaginosis PCR POSITIVE (Negative); Candida Group PCR NOT DETECTED (Not Detect); Candida glab krusei PCR NOT DETECTED (Not Detect); Trichomonas vaginalis PCR NOT DETECTED (Not Detect)
[2025-09-23 03:59] LABS: CT PCR NOT DETECTED (Not Detect.); NG PCR NOT DETECTED (Not Detect.)
== END 2025-09-23 01:48 | disposition home or self-care (01) ==
PROVIDERS: Physician Assistant; Emergency Provider Emergency Medicine; PCP Internal Medicine Sports Medicine
DX: R10.20 Pelvic and perineal pain unspecified side (principal); I10 Essential (primary) hypertension; J45.909 Unspecified asthma, uncomplicated
CPT/HCPCS: 36415; 80053; 81003; 81025; 81515; 84702; 85025; 87491; 87591; 99283; 99284

== ENCOUNTER 2025-09-24 18:07 | Emergency (ER) | payer OTHER, SELFPAY ==
--- OUTSIDE RECORDS SUMMARY | 2023-09-01 06:00 | XMS_ITS | Continuity of Care Document ---
Author Organization [facility] Address [address] [place] [address] Dr [address] [place] [address] Phone Care Team Providers Care Photographer Assistant Name Role Phone Ian CHAVIS FACS RVT [place] AGARWAL Unavailable Unavailable Allergies, Adverse Reactions, Alerts Substance Reaction Status Criticality PENICILLIN Active No Information Medications Medication Instructions Dosage Effective Dates (start - stop) Status Comments Flovent HFA 44 mcg/actuation aerosol inhaler - Active VENTOLIN HFA (unknown strength) Not Available - Active FISH OIL (unknown strength) Not Available - Active PROBIOTIC (unknown strength) Not Available - Active Procedures Procedure Date Office/Outpt E&M Established 15 Mins Aug Advance Directives Directive Yes / No Effective Date File Name No Information Encounters Encounter Description Practice Location Reason(s) For Visit Diagnoses Date Provider Providers Copied on Encounter Office/Outpt E&M Established 15 Mins [facility], [address] [place] [address] Dr [address], [place], [id number], [place] tel:[phone] CVR - [facility] Chronic venous hypertension (idiopathic) with other complications of bilateral lower extremity 3 Ian CHAVIS FACS RVBrayan Paulino. [address] [facility], [address], [place], [address], [place]. tel:[phone] Referring Provider: RIKI HARMAN MD, [address] [place], [address]. tel:[phone] Family History Family Member Type Diagnosis Age At Onset No Information Payers Payer name Insurance type Covered green party ID Authoriza tion(s) [employer] [facility] [place] [id number] Social History Type Description Quantity Date Captured Comments Alcohol Use Details No Caffeine Use Details Unknown Tobacco Use Status Ex-cigarette smoker 023 Smoking Status Former smoker Smoking Tobacco Use Details Cigarette: Age Stopped: 28 Cigarette: No Details Available Sex Female Chief Complaint And Reason For Visit No Information Reason For Referral Reason For Referral No Information Plan Of Treatment Date Type Action Status Goal Tobacco cessation counseling completed History Of Present Illness Encounter Date Complaint History Of Prese nt Illness No Information Functional Status Date Functional Assessmen t No Information Instructions Date Instruction Additional Infor mation No Information Assessments Type Assessment Date assessment Chronic venous hyper tension (idiopathic) with other complications of bilateral lower extremity Patient Care Teams Name Effective Dates (start - stop) Status Members No Information
--- NOTE | ~2025-09-24 | XR_ITS ---
CLINICAL HISTORY: upper back pain 2 views thoracic spine Comparison: None Findings: No fractures or dislocations. Normal vertebral body alignment. There is mild mid and [id number] lower thoracic vertebral body spurring. Impression: 1. [id number] mid to lower thoracic degenerative disc disease. This document has been electronically signed by: Rome Neri MD on 09/24/2025 20:37:15
--- NOTE | ~2025-09-24 | XR_ITS ---
CLINICAL HISTORY: neck and bilat arm pain 3 views cervical spine Comparison: None Findings: Normal vertebral body alignment. No fractures, dislocations, or degenerative changes. Prevertebral soft tissues normal. Lung apices are unremarkable. Impression: 1. Unremarkable cervical spine This document has been electronically signed by: Rome Neri MD on 09/24/2025 20:36:39
[2025-09-24 18:27] VITALS: BP 151/80; PULSE 91; RESP 18; TEMP 36.8; O2SAT 99; BMI 32.6
[2025-09-24 19:21] VITALS: BP 142/104; PULSE 90; RESP 20; TEMP 36.6; O2SAT 98
--- NOTE | 2025-09-24 19:42 | ED.GENADULT ---
HPI - General Adult General Chief complaint: Back Pain/Injury Stated complaint: Back Pain Time Seen by Provider: 09/24/25 19:42 History of Present Illness ED Provider: Pradip VIRK narrative: The patient is a 39-year-old female who was seen here 2 days ago with lower abdominal and pelvic complaints. She also was complaining of lower back pain. She had labs that showed a normal white count of 7.6, normal hemoglobin of 13.7, and a normal differential on her white blood count. She has a an unremarkable basic metabolic panel and a negative test. She has a normal urinalysis. The patient was given an option of a pelvic exam to evaluate her pelvic pain or to self swab. The patient chose to self swab. Overall the patient was felt to not be terribly acutely ill and she was discharged with instructions to follow up with the regular doctor. The patient says that her pelvic symptoms have improved since she left the emergency room but that she has had back pain that has radiated up her spine to her neck. She called her regular doctor's office hoping that she would get a prescription for tizanidine. However she apparently also said that she was having intermittent episodes of numbness and tingling and similar symptoms in her upper extremities. Apparently this let her primary care doctor's office to recommend that she come back to the emergency room for re-evaluation. She has had no fever, sweats, chills. She is not having any numbness or tingling in her arms at the moment. She believes that she has a history of degenerative disease in her spine. On reviewing the patient is results from 2 days ago the the patient's vaginal swab has tested positive for bacterial vaginosis. I informed the patient of this. She says that she has no vaginal symptoms. She also says that she has a history of testing positive for bacterial vaginosis and therefore she does not feel she would want treatment today. Additionally she says that she has a gynecology appointment in 3 days on Tuesday. Related Data Previous Rx's ?Medication ?Instructions ?Recorded albuterol sulfate 90 mcg/actuation 2 puff inhalation QID PRN 11/01/21 aerosol inhaler shortness of breath or wheezing #8.5 grams prednisone 20 mg tablet 40 mg (2 x 20 mg) PO DAILY #10 tabs 11/01/21 sucralfate 100 mg/mL oral 10 ml PO TID #420 mL 04/08/23 suspension (Carafate) oseltamivir 75 mg capsule (Tamiflu) 75 mg PO BID 5 days #10 caps 01/14/24 prednisone 20 mg tablet 40 mg (2 x 20 mg) PO DAILY 5 days 01/14/24 #10 tabs acetaminophen 500 mg capsule 1,000 mg (2 x 500 mg) PO Q8H PRN 09/24/25 fever or pain #20 caps ibuprofen 400 mg tablet 400 mg PO Q6H PRN pain #14 tabs 09/24/25 tizanidine 6 mg capsule 6 mg PO Q8H PRN muscle spasticity 09/24/25 #20 caps Allergies Allergy/AdvReac Type Severity Reaction Status Date / Time Penicillins Allergy Anaphylaxis Verified 09/24/25 18:29 Review of Systems Review of Systems: Yes all other systems are reviewed and are negative [facility] Past Medical History Medical History Asthma HTN (hypertension) Maurisio's disease CHF (congestive heart failure) Social History Social History Alcohol intake: current Alcohol intake frequency: does not drink Substance Use Type: Marijuana Physical Exam ED Vital Signs: Vital Signs - 24 hr 09/24/25 18:27 09/24/25 19:21 09/24/25 21:26 Temperature 98.2 F 97.8 F 97.8 F Pulse Rate 91 90 90 Respiratory Rate 18 20 20 Blood Pressure 151/80 H 142/104 H 142/104 H Pulse Oximetry 99 98 98 Oxygen Delivery Method Room Air Room Air Room Air BMI result Body Mass Index 32.6 Const Other: The patient is awake and alert. The patient is not appear obviously acutely ill in any way. HENMT Other: The face is symmetrical. ?Mucous membranes moist. Eyes Other: Pupils are round equal, conjunctivae are clear, extraocular movements intact Neck Neck: Yes normal visual inspection and Yes full ROM Resp Effort & Inspection: normal respiratory effort Auscultation: clear to auscultation bilaterally Cardio Rate: regular rate Rhythm: regular rhythm Heart sounds: S1 normal heart sound present and S2 normal heart sound present Skin Other: The skin is dry and unremarkable Neuro Other: The patient is awake and alert with a normal mental status. Cranial nerves 2-12 are intact. She has intact strength and sensation in all extremities. She has 2+ reflexes at the biceps, 1+ reflexes at the triceps. She has 2+ reflexes at the knees and ankles. Toes go down bilaterally. She seems to be neurologically intact. Extrem Other: There is no calf swelling or tenderness. No asymmetry. No peripheral edema. Medications Administered Discontinued Medications Generic Name Dose Route Start Last Admin Trade Name Melisa PRN Reason Stop Dose Admin Ketorolac Tromethamine 30 mg 09/24/25 21:07 09/24/25 21:21 Ketorolac Tromethamine 30 Mg/Ml Vial IM 09/24/25 21:08 30 mg ONCE ONE Administration Medical Decision Making Medical Decision Making [facility] Narrative: The patient is complaining of upper back pain and possibly lower neck pain. She does not appear obviously acutely ill in any way. Apparently she called her primary care doctor's office today to discuss this pain. She says that she has been planning to ask for a prescription for tizanidine which she has received for muscle pains in the past. However when she mentioned that she was having symptoms in both of her arms she says that she was told to come to the emergency room for evaluation. My interpretation of this interaction is that the primary care office was concerned about some possible significant neurological process. My clinical exam does not reveal anything that seems to me like an acute neurological process of concern. She seems to have intact function of her upper extremities. We obtained x-rays of the cervical spine in the thoracic spine. These x-ray showed [id number] degenerative disc disease in the mid and lower thoracic spine but did not show any findings of concern in the cervical spine or the upper thoracic spine. I explained to the patient that I suspect that her upper back pains are most likely muscular pains. She will be prescribed acetaminophen, ibuprofen, and tizanidine. She is advised not to drive on tizanidine. She should follow up with the regular doctor to discuss these symptoms further. Additionally the patient tested positive for bacterial vaginosis when here 2 days ago. The patient was not placed on any treatment. I spoke to the patient about this positive result today. 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 Therefore she will defer any decisions about treatment until she sees her school cafeteria head cook. Discharge Plan Discharge Clinical Impression: Acute upper back pain Patient Disposition: Home, Self-Care Additional Instructions: Your x-rays did not show any alarming findings and your physical exam also seems reassuring. I think your pain is musculoskeletal in nature. I have sent prescriptions for acetaminophen (Tylenol) and ibuprofen which you may use as needed for pain. Additionally I have sent a prescription for tizanidine which you may also use to see if it helps. Please do not drive if taking this medications as it can make you drowsy. Please contact your regular doctor's office in the morning for a prompt follow up appointment for further evaluation. Return to the emergency room if significantly worse. Prescriptions: New acetaminophen 500 mg capsule 1,000 mg PO Q8H PRN (Reason: fever or pain) Qty: 20 0RF ibuprofen 400 mg tablet 400 mg PO Q6H PRN (Reason: pain) Qty: 14 0RF tizanidine 6 mg capsule 6 mg PO Q8H PRN (Reason: muscle spasticity) Qty: 20 0RF No Action prednisone 20 mg tablet 40 mg PO DAILY Qty: 10 0RF albuterol sulfate 90 mcg/actuation HFA aerosol inhaler 2 puff inhalation QID PRN (Reason: shortness of breath or wheezing) Qty: 8.5 0RF sucralfate [Carafate] 100 mg/mL suspension 10 ml PO TID Qty: 420 0RF Rx Instructions: swish in mouth and swallow; use after food/drink oseltamivir [Tamiflu] 75 mg capsule 75 mg PO BID 5 Days Qty: 10 0RF prednisone 20 mg tablet 40 mg PO DAILY 5 Days Qty: 10 0RF Referrals: Alberto Carrasco MD [Primary Care Provider, Pediatrics] Interventions: ED Discharge Assessment Last Done: 09/24/25 21:26 Discharge Date/Time: 09/24/25 21:27 Print Language: Icelandic
--- OUTSIDE RECORDS SUMMARY | 2025-09-24 19:45 | XMS_ITS | Encounter Summary ---
Author Organization [facility] Address [address] [place] [address] Care Team Providers Care Food Order Delivery Runner Name Role Phone Delvis Lama Primary Care Provider [phone] Encounter Details Date Type Department Care Team (Late st Contact Info) Description 09/29/2022 Documentation [facility] Surgery [address] [place], [place] [phone] Klever Kaur MD [address] [place], [place] [phone] Social History Tobacco Use Types Packs/Day Years [...] filedocumented in this encounter Care Teams Food Order Delivery Runner Relationship Specialty Start Date End Date Delvis Lama [address] [place] [id number] PCP - General 05/12/20 documented as of this encounter
--- OUTSIDE RECORDS SUMMARY | 2025-09-24 19:45 | XMS_ITS | Clinical Summary ---
Author Organization [facility] Address [address] [place] [address] Care Team Providers Care Reverse Logistics Analyst Name Role Phone Nga Murrieta MD Primary Care Provider Laya alvarez Surgical History Surgery Date Site/Laterality Comments OTHER SURGICAL HISTORY 2003 PROCEDURE: ---- OTHER ----; COMMENT: ectopic Family History Medical History Relation Name Comments Diabetes Brother 1 Hypertension Brother 2 Other: pfo Brother 3 unclear Diabetes Father Coronary artery disease Maternal Grandmother Ovarian cancer Maternal Grandmother Hypertension Mother Thyroid disease Mother Relation Name Status Comments Brother 1 Brother 2 Brother 3 Brother 4 Father Maternal Grandmother Mother Social History Tobacco Use Types Packs/Day Years Used Date Smoking Tobacco: Some Days Cigarettes Smokeless Tobacco: Never Alcohol Use Standard Drinks/Week Comments Yes 0 (1 standard drink = 0.6 oz pur e alcohol) Comments Unknown Sex and Gender Information Value Date Recorded Sex Assigned at Not on file Legal Sex Female 1:31 AM EST Gender Identity Not on file Sexual Orientation Not on file Obstetrics History Plan of Treatment Upcoming Encounters Date Type Department Care Team (Late st Contact Info) Description 12/31/2025 10:00 AM EST Consult Bariatric Surgery - [place] [address] [place] [phone] Popeye Mccallum MD [address] [place] [phone] Health Maintenance Due Date Last Done Comments Breast Cancer Screening 1983 Hepatitis B Vaccines (1 of 3 - 19+ 3-dose series) 2002 Pneumococcal Vaccine: Pediatrics (0 to 5 Years) and At-Risk Patients (6 to 49 Years) (1 of 2 - PCV) 2002 Cervical Cancer Screening: Pap Smear 2004 HPV Vaccines (1 - 3-dose SCDM series) 2010 DTaP,Tdap,and Td Vaccines (2 - Td or Tdap) 08/14/2020 08/14/2010 Cholesterol Screening (Lipid Panel) 10/03/2022 HIV Screening 10/03/2022 Hepatitis C Screening 10/03/2022 Social Influencers of Health Screening 10/03/2022 Hypertension/CHF/CAD Annual BMP Blood Test 10/16/2022 Depression Screening 10/31/2024 COVID-19 Vaccine ( season) 2025 Influenza Vaccine (#1) 2025 2, 07/08/2011, 10/15/2009, Additional history exists RSV Immunization Adult Patients (1 - 1-dose 75+ series) 2058 MMR Vaccines Aged Out 08/14/2010, 06/02/2010 No lo nger eligible based on patient's age to complete this topic HIB Vaccines Aged Out No longer eligi ble based on patient's age to complete this topic Hepatitis A Vaccines Aged Out No long er eligible based on patient's age to complete this topic IPV Vaccines Aged Out No longer eligi ble based on patient's age to complete this topic Meningococcal ACWY Vaccine Aged Out N o longer eligible based on patient's age to complete this topic Meningococcal B Vaccine Aged Out No l onger eligible based on patient's age to complete this topic RSV Immunization Patients Under 20 months Aged Out No longer eligible based on patient's age to complete this topic Varicella Vaccines Aged Out No longer eligible based on patient's age to complete this topic Insurance [facility] MEDICAID - [place] Care Teams Reverse Logistics Analyst Relationship Specialty Start Date End Date Nga Murrieta MD PCP - General Internal Medicine 02/21/13
--- OUTSIDE RECORDS SUMMARY | 2025-09-24 19:45 | XMS_ITS | Encounter Summary ---
Author Organization [facility] Address [address] [place] [address] Care Team Providers Care Call Center Director Name Role Phone Delvis Lama Primary Care Provider [phone] Encounter Details Date Type Department Care Team ([facility] st Contact Info) Description 07/09/2022 Telephone [facility] [address] [place] [phone] Telephone Intake, Staff Social History Tobacco Use [...] on filedocumented in this encounter Care Teams Call Center Director Relationship Specialty Start Date End Date Delvis Lama [address] [place] [address] PCP - General 7/13/20 documented as of this encounter
--- OUTSIDE RECORDS SUMMARY | 2025-09-24 19:45 | XMS_ITS | Clinical Summary ---
Author Organization [facility] Address [address] [place] [address] Care Team Providers Care Gut Sorter Name Role Phone Delvis Lama Primary Care Provider [phone] Allergies Active Allergy Reactions Criticality Noted Date Comments Hubbard Anaphylaxis High 12/24/2022 Apple Unknown 11/05/2020 Egg [...] ophthalmic solution nightly. 3 Active pedi multivit [id number] (CEROVITE JR) 18 mg iron- 10 [...] Additional history exists Procedures * Due to [place] [email or web address] law, this organization might not be sharing negative HIV tests. Procedure Name Priority Date/Time Associated Diagnosis Comments BASIC METABOLIC PANEL Routine 12/24/2022 3:07 PM EST Primary hypertension Class 2 obesity Preop examination from Last 3 Months or Most Recently Relevant to Health Maintenance Results * Due to [place] [email or web address] law, this organization might not be sharing negative HIV tests. * (ABNORMAL) Basic Metabolic Panel (12/24/2022 3:07 PM EST) NA 137 135 - 145 mmol/L 12/24/2022 4:09 PM [facility] K 4.5 3.5 - 5.3 mmol/L 12/24/2022 4:09 PM [facility] Cl 106 97 - 110 mmol/L 12/24/2022 4:09 PM [facility] CO2 29 24 - 32 mmol/L 12/24/2022 4:09 PM [facility] BUN 14 7 - 23 mg/dL 12/24/2022 4:09 PM [facility] Creatinine 0.70 0.50 - 1.20 mg/dL 12/24/2022 4:09 PM [facility] Glucose 91 70 - 99 mg/dL 12/24/2022 4:09 PM [facility] Calcium 9.9 8.7 - 10.7 mg/dL 12/24/2022 4:09 PM [facility] Anion Gap 2(L) 5 - 15 12/24/2022 4:09 PM [facility] eGFR >90 >=90 mL/min/1.7 3m2 12/24/2022 4:09 PM EST [facility] Comment: Estimated Glomerular [...] MD LAB BLOOD ORDERABLES Trupti l Result [facility] [address] [place] [address], from Last 3 Months or Most Recently Relevant to Health Maintenance Insurance [facility] MEDICAID Advance Directives Documents on File Type Date Recorded Patient Metal 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
--- OUTSIDE RECORDS SUMMARY | 2025-09-24 19:45 | XMS_ITS | Encounter Summary ---
Author Organization [facility] Address [address] [place] [address] Care Team Providers Care Fur Grader Name Role Phone Delvis Lama Primary Care Provider Encounter Details Date Type Department Care Team (Late st Contact Info) Description 03/24/2023 Coinapulthart Message [facility] Operating Room [address] [place] [address] Mychart, Generic Provider [address] [place] [address] appt Social History Tobacco Use Types Packs/Day [...] on filedocumented in this encounter Care Teams Fur Grader Relationship Specialty Start Date End Date Delvis Lama [address] [place] [address] PCP - General 05/12/20 documented as of this encounter
[2025-09-24 21:26] VITALS: BP 142/104; PULSE 90; RESP 20; TEMP 36.6; O2SAT 98
== END 2025-09-24 21:27 | disposition home or self-care (01) ==
PROVIDERS: Emergency Provider Emergency Medicine; PCP Internal Medicine Sports Medicine
DX: M54.6 Pain in thoracic spine (principal); M54.2 Cervicalgia; M79.603 Pain in arm, unspecified; M54.50 Low back pain, unspecified; R10.30 Lower abdominal pain, unspecified
CPT/HCPCS: 72040; 72072; 96372; 99284; J1885

== ENCOUNTER → 2025-09-24 20:06 | Outpatient (BNV) | payer OTHER, SELFPAY | PROVIDERS: Emergency Provider Emergency Medicine; PCP Internal Medicine Sports Medicine; Visit Provider Radiology Diagnostic Radiology | DX: M54.2 Cervicalgia (principal); M79.601 Pain in right arm; M79.602 Pain in left arm; M51.34 Other intervertebral disc degeneration, thoracic region | CPT/HCPCS: 72040; 72072 ==